=== PATIENT | male | born 1970 | race American Indian/Alaskan Native ===

== ENCOUNTER 2018-05-14 11:51 | Inpatient (IN) | payer OTHER ==
[2018-05-14 12:03] VITALS: BMI 32.8
[2018-05-14] MEDS ORDERED: Vancomycin 1gm in NS 250ml 1 GM/250 ML BAG IVPB STA (12:37)
[2018-05-14] MEDS ORDERED: Piperacillin/Tazobact 3.375 gm 100 ML IVPB STA (12:37)
--- NOTE | 2018-05-14 12:59 | ED PDOC ---
Arrival/HPI - General Chief Complaint: Finger,Hand,&Wrist Historian: Patient - History of Present Illness Narrative History of Present Illness (Text): 05/14/18 14:48 47yo morbidly obese male with pmhx of Asthma who present with complaint of right thumb swelling/pain x one week. Patient states a shell went into his nail on 05/01 and he was seen at in [place], where he was given antibiotic. States he took the unknown antibiotics for a week but the swelling became worse. Reports drainage from opening on the tuft. Denies fever,chills, nausea, vomiting, any other complaint. Past Medical History - Provider Review Nursing Documentation Reviewed: Yes - Infectious Disease Hx of Infectious Diseases: None - Psychiatric Hx Psychophysiologic Disorder: No Hx Substance Use: No - Anesthesia Hx Anesthesia: No Hx Anesthesia Reactions: No Hx Malignant Hyperthermia: No Family/Social History - Physician Review Nursing Documentation Reviewed: Yes Family/Social History: Unknown Family HX Smoking Status: Current Some Days Smoker Hx Alcohol Use: No Hx Substance Use: No Allergies/Home Meds Allergies/Adverse Reactions: Allergies Penicillins Allergy (Verified 05/14/18 12:56) RASH Review of Systems - Physician Review All systems were reviewed & negative as marked: Yes - Review of Systems Constitutional: Normal Eyes: Normal ENT: Normal Respiratory: Normal Cardiovascular: Normal Gastrointestinal: Normal Genitourinary Male: Normal Musculoskeletal: Normal Skin: Normal, Abscess (Right thumb) Neurological: Normal Endocrine: Normal Hemo/Lymphatic: Normal Psychiatric: Normal Physical Exam Vital Signs Reviewed: Yes Vital Signs Temp Pulse Resp Pulse Ox 05/14/18 12:03 98.9 F 88 18 99 Temperature: Afebrile Blood Pressure: Normal Pulse: Regular Respiratory Rate: Normal Appearance: Positive for: Well-Appearing, Non-Toxic, Comfortable Pain Distress: None Mental Status: Positive for: Alert and Oriented X 3 - Systems Exam Head: Present: Atraumatic, Normocephalic Pupils: Present: PERRL Extroacular Muscles: Present: EOMI Conjunctiva: Present: Normal Mouth: Present: Moist Mucous Membranes Neck: Present: Normal Range of Motion Respiratory/Chest: Present: Clear to Auscultation, Good Air Exchange. No: Respiratory Distress, Accessory Muscle Use Cardiovascular: Present: Regular Rate and Rhythm, Normal S1, S2. No: Murmurs Abdomen: No: Tenderness, Distention, Peritoneal Signs Back: Present: Normal Inspection Upper Extremity: Present: Normal Inspection. No: Cyanosis, Edema Lower Extremity: Present: Normal Inspection. No: Edema Neurological: Present: GCS=15, CN II-XII Intact, Speech Normal Skin: Present: Warm, Dry, Normal Color, Abscess (Right distal thumb and diffuse thumb swelling with erythema noted on the base of the thumb.). No: Rashes Psychiatric: Present: Alert, Oriented x 3, Normal Insight, Normal Concentration Medical Decision Making ED Course and Treatment: 05/14/18 14:53 47yo male who present to ED for stated history. He was afebrile and in no distress in ED. He have prominent swelling of his right thumb with erythema of his thumb base and abscess of his distal thumb. Labs Hand xray EKG EKG NSR @ 92bpm with LBBB. Lab was noted with BS of 389. Pt denied history of Diabetes. Likely a new onset diabetic. Pt denied chest pain but cardiac enzyme was ordered. Right hand xray - No acute finding Pt failed outpt oral abx and needed admission of IV abx. BS result was ABHISHEK Amaro and she was made aware hence pt was already admitted and sent upstairs. Case was ABHISHEK Hauser who accepted pt Case was also ABHISHEK Page, who states he will see pt in the hospital. - RAD Interpretation Radiology Orders: 05/14/18 12:38 HAND RIGHT THUMB [RAD] Stat - Medication Orders Current Medication Orders: Vancomycin HCl (Vancomycin 1gm) 1 gm in 250 mls @ 167 mls/hr IVPB STAT STA; Protocol Stop: 05/14/18 14:06 Piperacillin Sod/Tazobactam Sod (Zosyn 3.375 In Ns 100ml) 100 mls @ 200 mls/hr IVPB STAT STA; Protocol Stop: 05/14/18 13:06 Disposition/Present on Arrival - Present on Arrival Any Indicators Present on Arrival: No History of DVT/PE: No History of Uncontrolled Diabetes: No Urinary Catheter: No History of Decub. Ulcer: No History Surgical Site Infection Following: None - Disposition Have Diagnosis and Disposition been Completed?: Yes Diagnosis: Cellulitis and abscess of finger, unspecified, Diabetes mellitus, new onset Disposition: HOSPITALIZED Disposition Time: 12:30 Patient Plan: Admission Patient Problems: Current Active Problems Problem Status Onset Cellulitis and abscess of finger, unspecified Acute Diabetes mellitus, new onset Acute Condition: STABLE
[2018-05-14 13:09] LABS: BASO # 0.02 K/mm3 (0.0-2.0); BASO % 0.2 % (0.0-3.0); EOS # 0.1 (0.0-0.7); EOS % 0.5 % (1.5-5.0); GRAN # 8.13 (1.4-6.5); GRAN % 74.7 % (50.0-68.0); LYMPH # 1.6 (1.2-3.4); LYMPH % 14.8 % (22.0-35.0); MEAN CELL VOLUME 94.7 fl (80.0-105.0); MEAN CORPUSCULAR HEMOGLOBIN 32.9 pg (25.0-35.0); MEAN CORPUSCULAR HGB CONC 34.7 g/dl (31.0-37.0); MEAN PLATELET VOLUME 11.1 fl (7.0-11.0); MONO # 1.1 (0.1-0.6); MONO % 9.8 % (1.0-6.0); RBC 4.56 10^6/uL (3.5-6.1); RED CELL DISTRIBUTION WIDTH 12.7 % (11.5-14.5); WHITE BLOOD COUNT 10.9 10^3/uL (4.5-11.0)
[2018-05-14 13:15] LABS: INR 0.94; PARTIAL THROMBOPLASTIN TIME 29.2 Seconds (25.1-36.5); PROTHROMBIN TIME 10.8 SECONDS (9.4-12.5)
--- NOTE | 2018-05-14 13:29 | CP.PCM.HP ---
<Colt Mann - Last Filed: 05/14/18 15:27> History of Present Illness - History of Present Illness History of Present Illness: Abhijit Mann PGY2 - History and Physical for Hospitalist Service CC: Right thumb swelling/pain HPI: Mr. Flores is a 47 year old AA male with past medical history significant for asthma and pre-DM who presented to [facility] ED complaining of right thumb discomfort and swelling. 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 Patient indicates that he felt and could visualize part of the walnut fragment go under his right thumbnail. He was able to scrap out all of the walnut fragment. He stated that he washed and cleaned his hand with only minimal bleeding noticed. He indicates he went home and then the next day went to an urgent care in [place], [place] where he works to be evaluated. A three view right handed xray was preformed showing as what he reports as foreign body. Patient has xray on a CD for which he bro ught with him to the ED. The patient was also placed on Clindamycin 300mg TID for 10 days and instructed to follow up with an orthopedic surgeon. Patient reports taking up to 6 days of medication before presenting to [facility]. Patient stated that at the time of the urgent care visit he had swelling in his right thumb that was significant. He reported that over the past few days he has noticed some decrease in the swelling. Patient reports that he has limited range of motion with flexion at the distal interphalangeal joint, swelling involving the distal the mid portion of his thumb and dullness to feeling around the distal aspect of the thumb. He reports some drainage of clear fluid and blood periodically. He denies systemic illness, with denial of nausea, vomiting, fever, chills, abdominal pain, diarrhea, constipation. Patient has not been to work since the incident. 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 García Present on Admission - Present on Admission Any Indicators Present on Admission: No Review of Systems - Review of Systems All systems: reviewed and no additional remarkable complaints except (as mentioned in HPI) Past Patient History - Infectious Disease Hx of Infectious Diseases: None - Past Social History Smoking Status: Current Some Days Smoker - PSYCHIATRIC Hx Psychophysiologic Disorder: No Hx Substance Use: No - ANESTHESIA Hx Anesthesia: No Hx Anesthesia Reactions: No Hx Malignant Hyperthermia: No Meds Allergies/Adverse Reactions: Allergies Allergy/AdvReac Type Severity Reaction Status Date / Time Penicillins Allergy RASH Verified 05/14/18 12:56 shellfish Allergy ANAPHYLAXIS Uncoded 05/14/18 16:48 Physical Exam - Constitutional Appears: No Acute Distress - Head Exam Head Exam: ATRAUMATIC, NORMAL INSPECTION, NORMOCEPHALIC - Eye Exam Eye Exam: EOMI, PERRL - ENT Exam ENT Exam: Mucous Membranes Moist, Normal Oropharynx - Respiratory Exam Respiratory Exam: Clear to Auscultation Bilateral, NORMAL BREATHING PATTERN. absent: Rales, Rhonchi, Wheezes - Cardiovascular Exam Cardiovascular Exam: REGULAR RHYTHM, +S1, +S2 - GI/Abdominal Exam GI & Abdominal Exam: Normal Bowel Sounds, Soft. absent: Tenderness - Extremities Exam Extremities exam: Positive for: pedal pulses present. Negative for: calf tenderness, pedal edema Additional comments: Right thumb is noted to be double in size compared to left thumb Right thumbnail with small discolarion underneath nail possible dried blood vs. foreign body Tip of right thumb appears to have discolaration of white and paleness representing possible swelling/pressure No wheeping of seroussanguinous or mucous fluid - Expanded Upper Extremities Exam Right Neurosensory exam: median nerve intact Vascular exam: brachial pulse (intact), radial pulse (intact 2+), ulnar pulse (intact 2+) - Neurological Exam Neurological exam: Alert, CN II-XII Intact, Normal Gait, Oriented x3, Reflexes Normal - Psychiatric Exam Psychiatric exam: Normal Affect, Normal Mood - Skin Skin Exam: Dry, Intact Results - Vital Signs Recent Vital Signs: Last Vital Signs Temp 98.9 F 05/14/18 12:03 Pulse 88 05/14/18 12:03 Resp 18 05/14/18 12:03 BP Pulse Ox 99 05/14/18 12:03 - Labs Result Diagrams: 05/14/18 12:50 05/14/18 12:50 Labs: Laboratory Results - last 24 hr 05/14/18 05/14/18 12:50 12:50 WBC 10.9 RBC 4.56 Hgb 15.0 Hct 43.2 MCV 94.7 MCH 32.9 MCHC 34.7 RDW 12.7 Plt Count 206 MPV 11.1 H Gran % 74.7 H Lymph % (Auto) 14.8 L [place] % (Auto) 9.8 H Eos % (Auto) 0.5 L Baso % (Auto) 0.2 Gran # 8.13 H Lymph # (Auto) 1.6 [place] # (Auto) 1.1 H Eos # (Auto) 0.1 Baso # (Auto) 0.02 PT 10.8 INR 0.94 APTT 29.2 Assessment & Plan - Assessment and Plan (Free Text) Assessment: 47 year old AA male with past medical history significant for asthma and pre-DM who presented to [facility] ED complaining of right thumb discomfort and swelling. Plan: Right thumb swelling - Etiology: Abscess vs. foreign body - Previous evaluation done 05/02/18 at urgent care MD - Started on Clindamycin 300mg PO TID completed 6 days of therapy - 1 gram of Vancomycin in ED - Right hand xray pending official read LBBB on EKG - EKG showing LBBB with no previous EKG for comparison - Contacted primary care office for request of records including previous EKG and echocardiogram - Troponin - VSS, Risk factors include DM2 - Hx of Asthma - Patient reports using ProAir inhaler at home - Current social smoker, cessation counseling provided - duoneb prn shortness of breath DM2 - elevated glucose on admission 300+ - ISS low - ACHS - HgA1c ordered pending GI/DVT ppx - Pepcid - SCD Patient case and plan discussed with attending, Dr. Walls - Date & Time Date: 05/14/18 Time: 13:56 <Gardenia Walls - Last Filed: 05/15/18 11:32> Results - Vital Signs Recent Vital Signs: Last Vital Signs Temp 98.6 F 05/15/18 07:00 Pulse 94 H 05/15/18 07:00 Resp 20 05/15/18 07:00 BP 133/80 05/15/18 07:00 Pulse Ox 98 05/15/18 07:00 - Labs Result Diagrams: 05/15/18 07:30 05/15/18 07:30 Labs: Laboratory Results - last 24 hr 05/14/18 05/14/18 05/14/18 12:00 12:00 12:50 WBC 10.9 RBC 4.56 Hgb 15.0 Hct 43.2 MCV 94.7 MCH 32.9 MCHC 34.7 RDW 12.7 Plt Count 206 MPV 11.1 H Gran % 74.7 H Lymph % (Auto) 14.8 L [place] % (Auto) 9.8 H Eos % (Auto) 0.5 L Baso % (Auto) 0.2 Gran # 8.13 H Lymph # (Auto) 1.6 [place] # (Auto) 1.1 H Eos # (Auto) 0.1 Baso # (Auto) 0.02 PT INR APTT Sodium Potassium Chloride Carbon Dioxide Anion Gap BUN Creatinine Est GFR ( Amer) Est GFR (Non-Af Amer) POC Glucose (mg/dL) Random Glucose Hemoglobin A1c 15.0 H Calcium Phosphorus 3.8 Magnesium 1.8 Total Bilirubin AST ALT Alkaline Phosphatase Lactate Dehydrogenase Total Creatine Kinase Troponin I Total Protein Albumin Globulin Albumin/Globulin Ratio 05/14/18 05/14/18 05/14/18 12:50 12:50 16:18 WBC RBC Hgb Hct MCV MCH MCHC RDW Plt Count MPV Gran % Lymph % (Auto) [place] % (Auto) Eos % (Auto) Baso % (Auto) Gran # Lymph # (Auto) [place] # (Auto) Eos # (Auto) Baso # (Auto) PT 10.8 INR 0.94 APTT 29.2 Sodium 136 Potassium 4.4 Chloride 102 Carbon Dioxide 17 L Anion Gap 21 H BUN 12 Creatinine 0.6 L Est GFR ( Amer) > 60 Est GFR (Non-Af Amer) > 60 POC Glucose (mg/dL) Random Glucose 383 H* Hemoglobin A1c Calcium 9.7 Phosphorus Magnesium Total Bilirubin 0.5 AST 19 ALT 19 Alkaline Phosphatase 108 Lactate Dehydrogenase 329 L Total Creatine Kinase 46 Troponin I < 0.01 Total Protein 7.6 Albumin 4.3 Globulin 3.3 Albumin/Globulin Ratio 1.3 05/14/18 05/14/18 05/15/18 16:29 21:24 06:39 WBC RBC Hgb Hct MCV MCH MCHC RDW Plt Count MPV Gran % Lymph % (Auto) [place] % (Auto) Eos % (Auto) Baso % (Auto) Gran # Lymph # (Auto) [place] # (Auto) Eos # (Auto) Baso # (Auto) PT INR APTT Sodium Potassium Chloride Carbon Dioxide Anion Gap BUN Creatinine Est GFR ( Amer) Est GFR (Non-Af Amer) POC Glucose (mg/dL) 388 H 341 H 256 H Random Glucose Hemoglobin A1c Calcium Phosphorus Magnesium Total Bilirubin AST ALT Alkaline Phosphatase Lactate Dehydrogenase Total Creatine Kinase Troponin I Total Protein Albumin Globulin Albumin/Globulin Ratio 05/15/18 05/15/18 07:30 07:30 WBC 9.1 RBC 4.35 Hgb 14.2 Hct 41.1 L MCV 94.5 MCH 32.6 MCHC 34.5 RDW 12.4 Plt Count 197 MPV 11.6 H Gran % 64.3 Lymph % (Auto) 17.3 L [place] % (Auto) 17.3 H Eos % (Auto) 0.8 L Baso % (Auto) 0.3 Gran # 5.88 Lymph # (Auto) 1.6 [place] # (Auto) 1.6 H Eos # (Auto) 0.1 Baso # (Auto) 0.03 PT INR APTT Sodium 134 Potassium 4.0 Chloride 98 Carbon Dioxide 26 Anion Gap 15 BUN 9 Creatinine 0.6 L Est GFR ( Amer) > 60 Est GFR (Non-Af Amer) > 60 POC Glucose (mg/dL) Random Glucose 279 H Hemoglobin A1c Calcium 9.3 Phosphorus Magnesium Total Bilirubin 0.6 AST 16 L ALT 17 Alkaline Phosphatase 98 Lactate Dehydrogenase Total Creatine Kinase Troponin I Total Protein 7.2 Albumin 3.9 Globulin 3.3 Albumin/Globulin Ratio 1.2 Attending/Attestation - Attestation I have personally seen and examined this patient.: Yes I have fully participated in the care of the patient.: Yes I have reviewed all pertinent clinical information: Yes Notes (Text): 05/15/18 11:29 Medical record note made by the resident after discussion with my direction and input after the patient was personally seen and examined by me. I have reviewed the chart and agree that the record accurately reflects by personal performance of the history, physical exam, data review, and medical decision-making, in the course for the patient. I have also personally directed the plan of care. 47 year old male with past medical history significant for asthma ,DM and non compliance with medication is admitted with right thumb abscess, failed out patient antibiotics therapy Patient is also found to have elevated blood sugars Agreed with IV antibiotics. Surgery is consulted,Patient will need I/D We will follow up cultures. For DM, we will start on Levemir, we will check Hemoglobin 1AC and will monitor blood sugars. Management plan was discussed in detail with patient. Education was provided.
[2018-05-14 13:37] LABS: ALB/GLOB RATIO 1.3 (1.1-1.8); ALBUMIN 4.3 g/dL (3.0-4.8); ALT/SGPT 19 U/L (7-56); AST/SGOT 19 U/L (17-59); BLOOD UREA NITROGEN 12 mg/dL (7-21); CALCIUM 9.7 mg/dL (8.4-10.5); GFR NON-AFRICAN AMERICAN > 60
[2018-05-14] MEDS ORDERED: Albuterol-Ipratrop 3 mg / 0.5 (3 ml) UD IH PRN (13:53)
--- NOTE | 2018-05-14 14:03 | RAD ---
PROCEDURE: Right Hand Radiographs. HISTORY: thumb infectioin COMPARISON: None. FINDINGS: BONES: Normal. No fracture. JOINTS: Normal. No osteoarthritic changes. SOFT TISSUES: Normal. OTHER FINDINGS: None. IMPRESSION: Normal right hand radiographs.
[2018-05-14] MEDS ORDERED: Dextrose 50% SYRINGE Inj (50 ml) IV PRN (14:05)
--- NOTE | 2018-05-14 16:27 | CP.PCM.CON ---
History of Present Illness - History of Present Illness History of Present Illness: Plastic/Hand Surgery Dr. Page 47 y/o M w/ PMHx of ... presents to the ED c/o Right thumb pain/swelling. Pt reports injuring his thumb on 05/01 while at work. 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 Pt reports removing all of the visible shell from under his nail. Pt admits to minor bleeding at time of injury. Pt provided local wound care at time of injury. About 3 days after injury, pt went to Urgent Care for worsening pain/swelling of thumb. Xrays done at urgent care showed no retained foreign body. Pt given 10days Clindamycin PO of which pt reports taking 6days. Pt came to the ED today for worsening pain, swelling, and drainage from thumb. Pt admits to decreased ROM and sensation to thumb but denies numbnes s/tingling. Pt denies F/C, N/V. PMHx: Asthma, DM2 Meds: reviewed in chart ALL: PCN, shellfish PSHx: denies SHx: (+)tobacco; denies EtOH, drug use FHx: noncontributory Review of Systems - Review of Systems All systems: reviewed and no additional remarkable complaints except (see HPI) Past Patient History - Infectious Disease Hx of Infectious Diseases: None - Past Social History Smoking Status: Current Some Days Smoker - PSYCHIATRIC Hx Psychophysiologic Disorder: No Hx Substance Use: No - ANESTHESIA Hx Anesthesia: No Hx Anesthesia Reactions: No Hx Malignant Hyperthermia: No Meds Allergies/Adverse Reactions: Allergies Allergy/AdvReac Type Severity Reaction Status Date / Time Penicillins Allergy RASH Verified 05/14/18 12:56 - Medications Medications: Current Medications Acetaminophen (Tylenol 325mg Tab) 650 mg PO Q6H PRN PRN Reason: Pain, moderate (4-7) Last Admin: 05/14/18 15:01 Dose: 650 mg Albuterol/Ipratropium (Duoneb 3 Mg/0.5 Mg (3 Ml) Ud) 3 ml IH Q2H PRN PRN Reason: Shortness of Breath Dextrose (Dextrose 50% Inj) 0 ml IV STAT PRN; Protocol PRN Reason: Hypoglycemia Protocol Famotidine (Pepcid) 40 mg PO HS JUAN JOSE Dextrose (Dextrose 5% In Water 1000 Ml) 1,000 mls @ 0 mls/hr IV .Q0M PRN; Protocol PRN Reason: Hypoglycemia Protocol Vancomycin HCl (Vancomycin 1gm) 1 gm in 250 mls @ 167 mls/hr IVPB DAILY JUAN JOSE; Protocol Piperacillin Sod/Tazobactam Sod (Zosyn 3.375 In Ns 100ml) 100 mls @ 25 mls/hr IVPB Q8 JUAN JOSE; Protocol Stop: 05/15/18 09:59 Insulin Detemir (Levemir) 10 unit SC HS JUAN JOSE Insulin Human Lispro (Humalog Med) 0 units SC ACHS JUAN JOSE; Protocol Physical Exam - Constitutional Appears: Non-toxic, No Acute Distress - Head Exam Head Exam: NORMAL INSPECTION - Eye Exam Eye Exam: Normal appearance - ENT Exam ENT Exam: Mucous Membranes Moist - Respiratory Exam Respiratory Exam: NORMAL BREATHING PATTERN. absent: Accessory Muscle Use, Respiratory Distress - Cardiovascular Exam Cardiovascular Exam: absent: Bradycardia, Tachycardia - GI/Abdominal Exam GI & Abdominal Exam: Normal Bowel Sounds, Soft. absent: Distended - Extremities Exam Additional comments: R thumb w/ fluctuance to nail root as well as pulp seropurulent drainage expressed from medial thumb wound - Neurological Exam Neurological exam: Alert, Oriented x3 - Psychiatric Exam Psychiatric exam: Normal Affect, Normal Mood - Skin Skin Exam: Dry, Warm Results - Vital Signs Recent Vital Signs: Last Vital Signs Temp 97.4 F L 05/14/18 14:00 Pulse 85 05/14/18 14:00 Resp 20 05/14/18 14:00 BP 123/70 05/14/18 14:00 Pulse Ox 96 05/14/18 14:00 - Labs Result Diagrams: 05/14/18 12:50 05/14/18 12:50 Labs: Laboratory Results - last 24 hr 05/14/18 05/14/18 05/14/18 12:00 12:50 12:50 WBC 10.9 RBC 4.56 Hgb 15.0 Hct 43.2 MCV 94.7 MCH 32.9 MCHC 34.7 RDW 12.7 Plt Count 206 MPV 11.1 H Gran % 74.7 H Lymph % (Auto) 14.8 L [place] % (Auto) 9.8 H Eos % (Auto) 0.5 L Baso % (Auto) 0.2 Gran # 8.13 H Lymph # (Auto) 1.6 [place] # (Auto) 1.1 H Eos # (Auto) 0.1 Baso # (Auto) 0.02 PT INR APTT Sodium 136 Potassium 4.4 Chloride 102 Carbon Dioxide 17 L Anion Gap 21 H BUN 12 Creatinine 0.6 L Est GFR ( Amer) > 60 Est GFR (Non-Af Amer) > 60 Random Glucose 383 H* Calcium 9.7 Phosphorus 3.8 Magnesium 1.8 Total Bilirubin 0.5 AST 19 ALT 19 Alkaline Phosphatase 108 Total Protein 7.6 Albumin 4.3 Globulin 3.3 Albumin/Globulin Ratio 1.3 05/14/18 12:50 WBC RBC Hgb Hct MCV MCH MCHC RDW Plt Count MPV Gran % Lymph % (Auto) [place] % (Auto) Eos % (Auto) Baso % (Auto) Gran # Lymph # (Auto) [place] # (Auto) Eos # (Auto) Baso # (Auto) PT 10.8 INR 0.94 APTT 29.2 Sodium Potassium Chloride Carbon Dioxide Anion Gap BUN Creatinine Est GFR ( Amer) Est GFR (Non-Af Amer) Random Glucose Calcium Phosphorus Magnesium Total Bilirubin AST ALT Alkaline Phosphatase Total Protein Albumin Globulin Albumin/Globulin Ratio - Imaging and Cardiology Hand x-ray Status: Image reviewed by me Assessment & Plan - Assessment and Plan (Free Text) Assessment: 47 y/o M w/ Right thumb felon Plan: - plan for bedside I&D this evening - cont pain management - cont IV Abx - warm betadine soaks TID - strict glucose control - f/u wound Cx Pt discussed w/ Dr. Camilo Cormier DO PGY3
[2018-05-14] MEDS ORDERED: Insulin Lispro (humaLOG) LOW Coverage SC SCH (16:30)
[2018-05-14 16:42] LABS: TROPONIN I < 0.01 ng/mL
[2018-05-14] MEDS: Insulin Lispro (humaLOG) MEDIUM Coverage SC SCH ×2 (17:30→21:38)
[2018-05-14] MEDS ORDERED: Pneumococcal 23-Valent Vaccine IM ONE (17:34)
[2018-05-14] MEDS ORDERED: Influenza Vaccine 60 mcg/0.5 mL SYR (4YR UP) IM ONE (17:34)
--- NOTE | 2018-05-14 20:10 | CARD ---
APPROVED REPORT Date of service: 05/14/2018 EKG Measurement Heart [id number] <Conclusion> Normal sinus rhythm Possible Left atrial enlargement Left bundle branch block Abnormal ECG
[2018-05-14] MEDS: Povidone Iodine Topical 10% Sol TOP SCH (20:33)
--- NOTE | 2018-05-14 20:33 | PCM.SURG1 ---
Surgeon's Initial Post Op Note - Surgeon's Notes Surgeon: Dr. Page Research Administrator: Dr. Duque PGY4 Type of Anesthesia: Block Regional Pre-Operative Diagnosis: right thumb abscess Operative Findings: purulent fluid, abscess cavity to bone Post-Operative Diagnosis: same Operation Performed: exploration, debridement, and incision and drainage of right thumb abscess and felon Specimen/Specimens Removed: abscess culture Estimated Blood Loss: EBL {In ML}: 0 Blood Products Given: N/A Drains Used: No Drains Post-Op Condition: Good Date of Surgery/Procedure: 05/14/18 Time of Surgery/Procedure: 20:33
[2018-05-14] MEDS ORDERED: Insulin Detemir 100 units/ml Vial (Levemir) SC SCH (22:00)
[2018-05-14] MEDS ORDERED: Piperacillin/Tazobact 3.375 gm 100 ML IVPB SCH (22:00)
[2018-05-14] MEDS: Vancomycin 1.5 GM in Sodium Chloride 0.9% 500 ML IVPB SCH (23:45)
--- NOTE | 2018-05-15 07:49 | CP.PCM.PN ---
<Wale Patrick - Last Filed: 05/15/18 12:59> Subjective - Date & Time of Evaluation Date of Evaluation: 05/15/18 Time of Evaluation: 06:00 - Subjective Subjective: Patient seen and examined bedside in AM. No acute issues overnight. Patient states pain and ROM in thumb have improved. Patient denies fever, chills, nausea, vomiting, or any other complaints at this time. Objective - Vital Signs/Intake and Output Vital Signs (last 24 hours): Temp Pulse Resp BP Pulse Ox 97.4 F L 110 H 18 123/70 96 05/14/18 14:00 05/14/18 16:47 05/14/18 16:47 05/14/18 14:00 05/14/18 14:00 Intake and Output: 05/15/18 05/15/18 06:59 18:59 Intake Total 1420 Balance 1420 - Medications Medications: Current Medications Acetaminophen (Tylenol 325mg Tab) 650 mg PO Q6H PRN PRN Reason: Pain, moderate (4-7) Last Admin: 05/14/18 22:33 Dose: 650 mg Albuterol/Ipratropium (Duoneb 3 Mg/0.5 Mg (3 Ml) Ud) 3 ml IH Q2H PRN PRN Reason: Shortness of Breath Dextrose (Dextrose 50% Inj) 0 ml IV STAT PRN; Protocol PRN Reason: Hypoglycemia Protocol Famotidine (Pepcid) 40 mg PO HS JUAN JOSE Last Admin: 05/14/18 21:22 Dose: 40 mg Dextrose (Dextrose 5% In Water 1000 Ml) 1,000 mls @ 0 mls/hr IV .Q0M PRN; Protocol PRN Reason: Hypoglycemia Protocol Vancomycin HCl 1.5 gm/ Sodium (Chloride) 500 mls @ 167 mls/hr IVPB Q12H JUAN JOSE; Protocol Last Admin: 05/14/18 23:45 Dose: 167 mls/hr Piperacillin Sod/Tazobactam Sod (Zosyn 4.5 Gm In Ns 100ml) 4.5 gm in 100 mls @ 25 mls/hr IVPB Q6 JUAN JOSE; Protocol Stop: 05/15/18 21:59 Insulin Detemir (Levemir) 20 unit SC HS JUAN JOSE Insulin Human Lispro (Humalog Med) 0 units SC ACHS JUAN JOSE; Protocol Last Admin: 05/14/18 21:38 Dose: 2 units Povidone Iodine (Betadine 10% Topical Soln) 10 ml TOP TID JUAN JOSE Last Admin: 05/14/18 20:33 Dose: Not Given Tramadol HCl (Ultram) 50 mg PO Q6 PRN PRN Reason: Pain, moderate (4-7) Last Admin: 05/15/18 05:48 Dose: 50 mg - Labs Labs: 05/14/18 12:50 05/14/18 12:50 PT 10.8 SECONDS (9.4-12.5) 05/14/18 12:50 INR 0.94 05/14/18 12:50 APTT 29.2 Seconds (25.1-36.5) 05/14/18 12:50 - Constitutional Appears: Well, Non-toxic, No Acute Distress - Head Exam Head Exam: ATRAUMATIC, NORMAL INSPECTION, NORMOCEPHALIC - Eye Exam Eye Exam: EOMI, Normal appearance, PERRL - ENT Exam ENT Exam: Mucous Membranes Moist - Respiratory Exam Respiratory Exam: Clear to Ausculation Bilateral, NORMAL BREATHING PATTERN - Cardiovascular Exam Cardiovascular Exam: REGULAR RHYTHM, +S1, +S2 - GI/Abdominal Exam GI & Abdominal Exam: Soft, Normal Bowel Sounds. absent: Tenderness - Extremities Exam Extremities Exam: absent: Pedal Edema, Tenderness - Back Exam Additional comments: right thumb has dressing, patient has good range of motion - Neurological Exam Neurological Exam: Alert, Awake, Oriented x3 Assessment and Plan - Assessment and Plan (Free Text) Assessment: 47 year old AA male with past medical history significant for asthma and pre-DM who presented [place] [facility] complaining of right thumb discomfort and swelling. Plan: Right thumb swelling -s/p Incission and Drainage with Dr. Camilo hsieh, aztreonam, acyclovir -MRI of thumb pending to rule our osteomyelitis LBBB on EKG -EKG showing LBBB with no previous EKG for comparison -Contacted primary care office for request of records including previous EKG and echocardiogram -troponin negative Hx of Asthma - Patient reports using ProAir inhaler at home - Current social smoker, cessation counseling provided - Duoneb prn shortness of breath DM2 - elevated glucose on admission 300+ - ISS low - ACHS - HgA1c: 12.4 GI/DVT ppx - Pepcid - SCD <Irfan,Mohammad - Last Filed: 05/15/18 13:54> Objective - Vital Signs/Intake and Output Vital Signs (last 24 hours): Temp Pulse Resp BP Pulse Ox 98.6 F 94 H 20 133/80 98 05/15/18 07:00 05/15/18 07:00 05/15/18 07:00 05/15/18 07:00 05/15/18 07:00 Intake and Output: 05/15/18 05/15/18 06:59 18:59 Intake Total 1420 Balance 1420 - Medications Medications: Current Medications Acetaminophen (Tylenol 325mg Tab) 650 mg PO Q6H PRN PRN Reason: Pain, moderate (4-7) Last Admin: 05/14/18 22:33 Dose: 650 mg Albuterol/Ipratropium (Duoneb 3 Mg/0.5 Mg (3 Ml) Ud) 3 ml IH Q2H PRN PRN Reason: Shortness of Breath Dextrose (Dextrose 50% Inj) 0 ml IV STAT PRN; Protocol PRN Reason: Hypoglycemia Protocol Famotidine (Pepcid) 40 mg PO HS JUAN JOSE Last Admin: 05/14/18 21:22 Dose: 40 mg Dextrose (Dextrose 5% In Water 1000 Ml) 1,000 mls @ 0 mls/hr IV .Q0M PRN; Protocol PRN Reason: Hypoglycemia Protocol Vancomycin HCl 1.5 gm/ Sodium (Chloride) 500 mls @ 167 mls/hr IVPB Q12H JUAN JOSE; Protocol Last Admin: 05/15/18 10:22 Dose: 167 mls/hr Aztreonam (Azactam 1 Gm) 100 mls @ 200 mls/hr IVPB Q8 JUAN JOSE Last Admin: 05/15/18 10:21 Dose: 200 mls/hr Acyclovir 500 mg/ Sodium (Chloride) 100 mls @ 100 mls/hr IV Q8 JUAN JOSE; Protocol Stop: 05/24/18 14:01 Insulin Detemir (Levemir) 20 unit SC HS JUAN JOSE Insulin Human Lispro (Humalog Med) 0 units SC ACHS JUAN JOSE; Protocol Last Admin: 05/15/18 10:11 Dose: 5 units Povidone Iodine (Betadine 10% Topical Soln) 10 ml TOP TID JUAN JOSE Last Admin: 05/15/18 10:12 Dose: 1 applic Tramadol HCl (Ultram) 50 mg PO Q6 PRN PRN Reason: Pain, moderate (4-7) Last Admin: 05/15/18 05:48 Dose: 50 mg - Labs Labs: 05/15/18 07:30 05/15/18 07:30 PT 10.8 SECONDS (9.4-12.5) 05/14/18 12:50 INR 0.94 05/14/18 12:50 APTT 29.2 Seconds (25.1-36.5) 05/14/18 12:50 Attending/Attestation - Attestation I have personally seen and examined this patient.: Yes I have fully participated in the care of the patient.: Yes I have reviewed all pertinent clinical information, including history, physical exam and plan: Yes Notes (Text): 05/15/18 13:45 Medical record note made by the resident after discussion with my direction and input after the patient was personally seen and examined by me. I have reviewed the chart and agree that the record accurately reflects by personal performance of the history, physical exam, data review, and medical decision-making, in the course for the patient. I have also personally directed the plan of care. 47 year old male with past medical history significant for asthma ,DM and non compliance with medication was admitted with right thumb abscess, failed out patient antibiotics therapy. He is SP I/D of abcess yesterday. We will also get MRI of hand to rule out osteomylitis. Continue IV antibiotic as per ID We will follow up cultures. DM is poorly controlled due to non compliance with medication.Hb1AC is 15. We will increase Levemir to 20 units , we will monitor and adjust medications.. Management plan was discussed in detail with patient. Education was provided. 05/15/18 13:53
--- NOTE | 2018-05-15 08:19 | CP.PCM.PN ---
Subjective - Date & Time of Evaluation Date of Evaluation: 05/15/18 Time of Evaluation: 08:12 - Subjective Subjective: Surgery: Dr. Page Patient reports significant overall improvement of pain and ROM this am of the right thumb. Denies f/c. No numbness or tingling of the thumb. Objective - Vital Signs/Intake and Output Vital Signs (last 24 hours): Temp Pulse Resp BP Pulse Ox 98.6 F 94 H 20 133/80 98 05/15/18 07:00 05/15/18 07:00 05/15/18 07:00 05/15/18 07:00 05/15/18 07:00 Intake and Output: 05/15/18 05/15/18 06:59 18:59 Intake Total 1420 Balance 1420 - Medications Medications: Current Medications Acetaminophen (Tylenol 325mg Tab) 650 mg PO Q6H PRN PRN Reason: Pain, moderate (4-7) Last Admin: 05/14/18 22:33 Dose: 650 mg Albuterol/Ipratropium (Duoneb 3 Mg/0.5 Mg (3 Ml) Ud) 3 ml IH Q2H PRN PRN Reason: Shortness of Breath Dextrose (Dextrose 50% Inj) 0 ml IV STAT PRN; Protocol PRN Reason: Hypoglycemia Protocol Famotidine (Pepcid) 40 mg PO HS JUAN JOSE Last Admin: 05/14/18 21:22 Dose: 40 mg Dextrose (Dextrose 5% In Water 1000 Ml) 1,000 mls @ 0 mls/hr IV .Q0M PRN; Protocol PRN Reason: Hypoglycemia Protocol Vancomycin HCl 1.5 gm/ Sodium (Chloride) 500 mls @ 167 mls/hr IVPB Q12H JUAN JOSE; Protocol Last Admin: 05/14/18 23:45 Dose: 167 mls/hr Aztreonam (Azactam 1 Gm) 100 mls @ 200 mls/hr IVPB Q8 JUAN JOSE Insulin Detemir (Levemir) 20 unit SC HS JUAN JOSE Insulin Human Lispro (Humalog Med) 0 units SC ACHS JUAN JOSE; Protocol Last Admin: 05/14/18 21:38 Dose: 2 units Povidone Iodine (Betadine 10% Topical Soln) 10 ml TOP TID JUAN JOSE Last Admin: 05/14/18 20:33 Dose: Not Given Tramadol HCl (Ultram) 50 mg PO Q6 PRN PRN Reason: Pain, moderate (4-7) Last Admin: 05/15/18 05:48 Dose: 50 mg - Labs Labs: 05/14/18 12:50 05/14/18 12:50 PT 10.8 SECONDS (9.4-12.5) 05/14/18 12:50 INR 0.94 05/14/18 12:50 APTT 29.2 Seconds (25.1-36.5) 05/14/18 12:50 - Constitutional Appears: Non-toxic, No Acute Distress - Extremities Exam Additional comments: right thumb with kerlex dressing wrap clean dry and intact Right hand neurovascularly intact Assessment and Plan - Assessment and Plan (Free Text) Assessment: 47 y/o male s/p exploration, debridement and I&D of right thumb abscess POD1 Plan: -recommending MRI of the Right hand/thumb to r/o osteo -cont IV abx per ID -leave dressing in place, with remove packing on Thursday. After packing removed, ok to wash wound with soap and water then cover with bacitracin at least 2x/day -d/w Dr. Alfredo Sorensen PGY4
[2018-05-15 08:33] LABS: ALB/GLOB RATIO 1.2 (1.1-1.8); ALBUMIN 3.9 g/dL (3.0-4.8); ALT/SGPT 17 U/L (7-56); AST/SGOT 16 U/L (17-59); BLOOD UREA NITROGEN 9 mg/dL (7-21); CALCIUM 9.3 mg/dL (8.4-10.5); GFR NON-AFRICAN AMERICAN > 60
[2018-05-15 08:51] LABS: BASO # 0.03 K/mm3 (0.0-2.0); BASO % 0.3 % (0.0-3.0); EOS # 0.1 (0.0-0.7); EOS % 0.8 % (1.5-5.0); GRAN # 5.88 (1.4-6.5); GRAN % 64.3 % (50.0-68.0); HEMOGLOBIN 14.2 g/dL (14.0-18.0); LYMPH # 1.6 (1.2-3.4); LYMPH % 17.3 % (22.0-35.0); MEAN CELL VOLUME 94.5 fl (80.0-105.0); MEAN CORPUSCULAR HEMOGLOBIN 32.6 pg (25.0-35.0); MEAN CORPUSCULAR HGB CONC 34.5 g/dl (31.0-37.0); MEAN PLATELET VOLUME 11.6 fl (7.0-11.0); MONO # 1.6 (0.1-0.6); MONO % 17.3 % (1.0-6.0); RBC 4.35 10^6/uL (3.5-6.1); RED CELL DISTRIBUTION WIDTH 12.4 % (11.5-14.5); WHITE BLOOD COUNT 9.1 10^3/uL (4.5-11.0)
[2018-05-15] MEDS ORDERED: Vancomycin 1gm in NS 250ml 1 GM/250 ML BAG IVPB SCH (10:00)
[2018-05-15] MEDS: Insulin Lispro (humaLOG) MEDIUM Coverage SC SCH ×4 (10:11→22:17)
[2018-05-15] MEDS: Povidone Iodine Topical 10% Sol TOP SCH ×4 (10:12→17:45)
[2018-05-15] MEDS: Aztreonam 1 Gm in NS 100mL 100 ML IVPB SCH ×3 (10:21→21:41)
[2018-05-15] MEDS: Vancomycin 1.5 GM in Sodium Chloride 0.9% 500 ML IVPB SCH ×2 (10:22→22:36)
[2018-05-15] MEDS ORDERED: Piperacill/Tazo 4.5gm in NS 4.5 GM/100 ML BAG IVPB SCH (12:00)
--- NOTE | 2018-05-15 13:07 | RAD ---
Date of service: 05/15/2018 PROCEDURE: Right Thumb radiographs. HISTORY: rule out osteo COMPARISON: None. TECHNIQUE: AP radiograph of the right hand, as well as spot oblique and lateral images of thumb were obtained. FINDINGS: RIGHT THUMB: There is a comminuted fracture of the distal phalanx of the right thumb with significant surrounding soft tissue swelling and what appears represent subcutaneous air along the palmar surface consistent with laceration. There may also be disruption of the nail bed as well. JOINTS: Normal. SOFT TISSUES: As above OTHER FINDINGS: None. IMPRESSION: Comminuted fracture of the distal phalanx of the right thumb with significant surrounding soft tissue swelling and what appears represent subcutaneous air along the palmar surface consistent with laceration. There may also be disruption of the nail bed as well.
[2018-05-15] MEDS: Acyclovir 500 MG in Sodium Chloride 0.9% 100 ML IV SCH ×2 (13:47→21:32)
--- NOTE | 2018-05-15 14:10 | CON ---
DATE OF CONSULTATION: 05/15/2018 The patient is seen earlier today in Room 574, Bed 2. CHIEF COMPLAINT: Right thumb infection x1 week duration. 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 After some time, he received antibiotics, which did not improve his thumb and he got progressively worse, was admitted now with a diagnosis of cellulitis and abscess of the thumb, was taken to the OR, had incision and drainage yesterday and exploration of the thumb. Infectious Disease consultation is requested. The patient states that his thumb was perfectly fine before the trauma. No nausea, no vomiting, no fevers, no chills, no chest pain. PAST MEDICAL HISTORY: Significant for prediabetes, high cholesterol, hypertension, and asthma. PAST SURGICAL HISTORY: Noncontributory. 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 He is . He has 3 sons. No recent travel. He does not bite his nails, he did not have a chronic infection of his thumb, and it all occurred right after the trauma. MEDICATIONS AT HOME: Include the patient to be on Lipitor, glipizide, carvedilol, and Singulair. ALLERGIES: THE PATIENT STATES HE IS ALLERGIC TO PENICILLIN. HE STATES THAT HE HAS A TYPE 1 ALLERGY. HE DEVELOPED ANAPHYLAXIS TO SHRIMP AND HE DOES NOT KNOW WHAT HAPPENS WHEN HE GETS PENICILLIN, HE ASSUMES IT IS THE SAME THE SHRIMP. HIS MOTHER TOLD HIM THAT HE WAS ALLERGIC TO PENICILLIN. PHYSICAL EXAMINATION: GENERAL: The patient is in bed, answering questions appropriately, nontoxic. VITAL SIGNS: Temperature of 98, blood pressure is 120/70, respiratory rate of 20, heart rate of 94. HEENT: Unremarkable. NECK: Supple. LUNGS: Decreased breath sounds. HEART: Normal S1, S2. ABDOMEN: Soft. EXTREMITIES: On examination of his thumb, there is a prior dressing on it and I am unable to evaluate the patient's thumb on exam since this is a post primary dressing. LABORATORY DATA: White count of 10,000, hemoglobin of 15, platelets of 206. Coagulations noted. Chemistries reveal a glucose of 383. Hemoglobin A1c is 15. Creatinine is 0.6. X-rays are noted. Operative note is reviewed. ASSESSMENT AND PLAN: This is a 47-year-old male with hypertension, diabetes, now with cellulitis and abscess of the right thumb, status post incision and drainage and exploration in a patient who is diabetic. Based on the history, there is no evidence of herpetic latoya complicated with bacterial infection as the patient does not bite his nails, he did not have lesions there and the finger was fine until the trauma. At this time, currently on vancomycin and Azactam. We will order an HIV because of his age and continue the vancomycin and Azactam, but we will empirically add acyclovir, although I doubt herpetic latoya with bacterial infection, pending a full surgical examination when Surgery takes the dressing off, and we will make further recommendations pending OR cultures and initial evaluation results. Gustavo Burgess MD
[2018-05-15] MEDS: Insulin Detemir 100 units/ml Vial (Levemir) SC SCH (22:23)
[2018-05-16] MEDS: Acyclovir 500 MG in Sodium Chloride 0.9% 100 ML IV SCH ×3 (06:07→21:40)
[2018-05-16] MEDS: Aztreonam 1 Gm in NS 100mL 100 ML IVPB SCH ×3 (06:34→22:06)
[2018-05-16 08:01] LABS: BASO # 0.02 K/mm3 (0.0-2.0); BASO % 0.3 % (0.0-3.0); EOS # 0.1 (0.0-0.7); EOS % 1.8 % (1.5-5.0); GRAN # 2.78 (1.4-6.5); GRAN % 46.4 % (50.0-68.0); HEMOGLOBIN 13.7 g/dL (14.0-18.0); LYMPH # 2.3 (1.2-3.4); LYMPH % 38.7 % (22.0-35.0); MEAN CELL VOLUME 93.2 fl (80.0-105.0); MEAN CORPUSCULAR HEMOGLOBIN 31.9 pg (25.0-35.0); MEAN CORPUSCULAR HGB CONC 34.3 g/dl (31.0-37.0); MEAN PLATELET VOLUME 10.9 fl (7.0-11.0); MONO # 0.8 (0.1-0.6); MONO % 12.8 % (1.0-6.0); RBC 4.29 10^6/uL (3.5-6.1); RED CELL DISTRIBUTION WIDTH 12.5 % (11.5-14.5)
[2018-05-16 08:03] LABS: ALB/GLOB RATIO 1.1 (1.1-1.8); ALBUMIN 3.3 g/dL (3.0-4.8); ALT/SGPT 20 U/L (7-56); AST/SGOT 15 U/L (17-59); BLOOD UREA NITROGEN 15 mg/dL (7-21); CALCIUM 9.1 mg/dL (8.4-10.5); GFR NON-AFRICAN AMERICAN > 60
[2018-05-16] MEDS: Insulin Lispro (humaLOG) MEDIUM Coverage SC SCH ×4 (08:37→22:01)
--- NOTE | 2018-05-16 08:53 | CP.PCM.PN ---
Subjective - Date & Time of Evaluation Date of Evaluation: 05/16/18 Time of Evaluation: 06:50 - Subjective Subjective: Plastic surgery progress note for Dr. Page Pt seen and examined at bedside today. States pain is improved. Packing removed at bedside, tolerated well. Objective - Vital Signs/Intake and Output Vital Signs (last 24 hours): Temp Pulse Resp BP Pulse Ox 97.8 F 72 20 124/71 97 05/16/18 07:00 05/16/18 07:00 05/16/18 07:00 05/16/18 07:00 05/16/18 07:00 Intake and Output: 05/16/18 05/16/18 06:59 18:59 Intake Total 350 Balance 350 - Medications Medications: Current Medications Acetaminophen (Tylenol 325mg Tab) 650 mg PO Q6H PRN PRN Reason: Pain, moderate (4-7) Last Admin: 05/14/18 22:33 Dose: 650 mg Albuterol/Ipratropium (Duoneb 3 Mg/0.5 Mg (3 Ml) Ud) 3 ml IH Q2H PRN PRN Reason: Shortness of Breath Bacitracin (Bacitracin) 0 ea TOP BID JUAN JOSE Dextrose (Dextrose 50% Inj) 0 ml IV STAT PRN; Protocol PRN Reason: Hypoglycemia Protocol Famotidine (Pepcid) 40 mg PO HS JUAN JOSE Last Admin: 05/15/18 22:23 Dose: 40 mg Dextrose (Dextrose 5% In Water 1000 Ml) 1,000 mls @ 0 mls/hr IV .Q0M PRN; Protocol PRN Reason: Hypoglycemia Protocol Vancomycin HCl 1.5 gm/ Sodium (Chloride) 500 mls @ 167 mls/hr IVPB Q12H JUAN JOSE; Protocol Last Admin: 05/15/18 22:36 Dose: 167 mls/hr Aztreonam (Azactam 1 Gm) 100 mls @ 200 mls/hr IVPB Q8 JUAN JOSE Last Admin: 05/16/18 06:34 Dose: 200 mls/hr Acyclovir 500 mg/ Sodium (Chloride) 100 mls @ 100 mls/hr IV Q8 JUAN JOSE; Protocol Stop: 05/24/18 14:01 Last Admin: 05/16/18 06:07 Dose: 100 mls/hr Insulin Detemir (Levemir) 20 unit SC HS JUAN JOSE Last Admin: 05/15/18 22:23 Dose: 20 unit Insulin Human Lispro (Humalog Med) 0 units SC ACHS JUAN JOSE; Protocol Last Admin: 05/16/18 08:37 Dose: 3 units Povidone Iodine (Betadine 10% Topical Soln) 10 ml TOP TID JUAN JOSE Last Admin: 05/15/18 17:45 Dose: Not Given Tramadol HCl (Ultram) 50 mg PO Q6 PRN PRN Reason: Pain, moderate (4-7) Last Admin: 05/15/18 21:40 Dose: 50 mg - Labs Labs: 05/16/18 07:00 05/16/18 07:00 PT 10.8 SECONDS (9.4-12.5) 05/14/18 12:50 INR 0.94 05/14/18 12:50 APTT 29.2 Seconds (25.1-36.5) 05/14/18 12:50 - Constitutional Appears: Well, Non-toxic, No Acute Distress - Head Exam Head Exam: ATRAUMATIC, NORMOCEPHALIC - Eye Exam Eye Exam: Normal appearance. absent: Conjunctival injection, Scleral icterus - ENT Exam ENT Exam: Mucous Membranes Moist, Normal Oropharynx - Respiratory Exam Respiratory Exam: NORMAL BREATHING PATTERN. absent: Accessory Muscle Use, Respiratory Distress - Cardiovascular Exam Cardiovascular Exam: RRR - GI/Abdominal Exam GI & Abdominal Exam: Soft. absent: Distended, Tenderness - Extremities Exam Additional comments: right thumb with dressing intact, moderate amount of old sero-purulent saturation, mild erythema of the thumb, no areas of fluctance, minimal swelling, small amount of serosanguinous fluid expressed from incision on the side of the nail bed, nail bed with no bleeding - Neurological Exam Neurological Exam: Alert, Awake, Oriented x3 - Psychiatric Exam Psychiatric exam: Normal Affect, Normal Mood - Skin Skin Exam: Dry, Normal Color, Warm Assessment and Plan - Assessment and Plan (Free Text) Assessment: 47M with felon of the right thumb POD#2 s/p exploration, debridement and incis ion and drainage of right thumb Plan: BID dressing changes with warm soap water rinses and bacitracin F/U wound cultures F/U MRI Continue antibiotics PRN pain medication Discussed with Dr. Page, who agrees with above Kallie Ruggiero, PGY2
[2018-05-16] MEDS: Povidone Iodine Topical 10% Sol TOP SCH ×2 (09:11→18:00)
[2018-05-16] MEDS: Bacitracin 500 Units/gm Oint Foilpak UD TOP SCH ×2 (09:12→19:09)
[2018-05-16] MEDS: Vancomycin 1.5 GM in Sodium Chloride 0.9% 500 ML IVPB SCH ×2 (11:52→22:03)
--- NOTE | 2018-05-16 12:14 | CP.PCM.PN ---
<Colt Mann - Last Filed: 05/20/18 10:06> Subjective - Date & Time of Evaluation Date of Evaluation: 05/16/18 Time of Evaluation: 12:12 - Subjective Subjective: Abhijit Johnathan PGY2 - IM Progress Note for Hospitalist Service Patient seen and examined this AM. No acute events overnight. Patient went for MRI this AM. Wound culture final reading pending. Patient indicates he feels better than from presentation. Patient denies nausea, vomiting, fever, chills, shortness of breath, abdominal pain, chest pain. Objective - Vital Signs/Intake and Output Vital Signs (last 24 hours): Temp Pulse Resp BP Pulse Ox 97.8 F 72 20 124/71 97 05/16/18 07:00 05/16/18 07:00 05/16/18 07:00 05/16/18 07:00 05/16/18 07:00 Intake and Output: 05/16/18 05/16/18 06:59 18:59 Intake Total 350 Balance 350 - Medications Medications: Current Medications Acetaminophen (Tylenol 325mg Tab) 650 mg PO Q6H PRN PRN Reason: Pain, moderate (4-7) Last Admin: 05/16/18 09:10 Dose: 650 mg Albuterol/Ipratropium (Duoneb 3 Mg/0.5 Mg (3 Ml) Ud) 3 ml IH Q2H PRN PRN Reason: Shortness of Breath Bacitracin (Bacitracin) 0 ea TOP BID JUAN JOSE Last Admin: 05/16/18 09:12 Dose: 1 ea Dextrose (Dextrose 50% Inj) 0 ml IV STAT PRN; Protocol PRN Reason: Hypoglycemia Protocol Famotidine (Pepcid) 40 mg PO HS JUAN JOSE Last Admin: 05/15/18 22:23 Dose: 40 mg Dextrose (Dextrose 5% In Water 1000 Ml) 1,000 mls @ 0 mls/hr IV .Q0M PRN; Protocol PRN Reason: Hypoglycemia Protocol Vancomycin HCl 1.5 gm/ Sodium (Chloride) 500 mls @ 167 mls/hr IVPB Q12H JUAN JOSE; Protocol Last Admin: 05/16/18 11:52 Dose: 167 mls/hr Aztreonam (Azactam 1 Gm) 100 mls @ 200 mls/hr IVPB Q8 JUAN JOSE Last Admin: 05/16/18 06:34 Dose: 200 mls/hr Acyclovir 500 mg/ Sodium (Chloride) 100 mls @ 100 mls/hr IV Q8 JUAN JOSE; Protocol Stop: 05/24/18 14:01 Last Admin: 05/16/18 06:07 Dose: 100 mls/hr Insulin Detemir (Levemir) 20 unit SC HS JUAN JOSE Last Admin: 05/15/18 22:23 Dose: 20 unit Insulin Human Lispro (Humalog Med) 0 units SC ACHS JUAN JOSE; Protocol Last Admin: 05/16/18 08:37 Dose: 3 units Povidone Iodine (Betadine 10% Topical Soln) 10 ml TOP TID JUAN JOSE Last Admin: 05/16/18 09:11 Dose: 1 applic Tramadol HCl (Ultram) 50 mg PO Q6 PRN PRN Reason: Pain, moderate (4-7) Last Admin: 05/15/18 21:40 Dose: 50 mg - Labs Labs: 05/16/18 07:00 05/16/18 07:00 PT 10.8 SECONDS (9.4-12.5) 05/14/18 12:50 INR 0.94 05/14/18 12:50 APTT 29.2 Seconds (25.1-36.5) 05/14/18 12:50 - Constitutional Appears: No Acute Distress - Head Exam Head Exam: ATRAUMATIC, NORMAL INSPECTION, NORMOCEPHALIC - Eye Exam Eye Exam: EOMI, PERRL - ENT Exam ENT Exam: Mucous Membranes Moist - Neck Exam Neck Exam: Full ROM - Respiratory Exam Respiratory Exam: Clear to Ausculation Bilateral, NORMAL BREATHING PATTERN - Cardiovascular Exam Cardiovascular Exam: REGULAR RHYTHM, +S1, +S2 - GI/Abdominal Exam GI & Abdominal Exam: Soft, Normal Bowel Sounds - Extremities Exam Additional comments: rigth thumb covered in surgical dressing, saturation of serosanguinous fluid apparent - Neurological Exam Neurological Exam: Alert, Awake, Normal Gait, Oriented x3 Neuro motor strength exam: Left Upper Extremity: 5, Right Upper Extremity: 5, Left Lower Extremity: 5, Right Lower Extremity: 5 - Psychiatric Exam Psychiatric exam: Normal Affect, Normal Mood - Skin Skin Exam: Dry, Intact Assessment and Plan - Assessment and Plan (Free Text) Assessment: 47 year old AA male with past medical history of asthma and uncontrolled DM2(HgA1c 15) with right thumb abscess r/o OM secondary to penetrating trauma secondary to walnut shell while making food at his home. As previously mentioned patient injury occurred at work. This is incorrect as with further questioning the patient injury occurred at his home. Plan: Right thumb abscess -s/p Incission and Drainage with Dr. Page -vanc, aztreonam, acyclovir -MRI of thumb pending to rule our osteomyelitis -Dr. Page following LBBB on EKG -EKG showing LBBB with no previous EKG for comparison -Previous EKG reviewed -troponins negative Hx of Asthma - Patient reports using ProAir inhaler at home - Current social smoker, cessation counseling provided - Duoneb prn shortness of breath DM2 - elevated glucose on admission 300+ - ISS low - ACHS - HgA1c: 15 - Levemir - CCD GI/DVT ppx - Pepcid - SCD Patient case and plan discussed with attending, Dr. Walls <Gardenia Walls - Last Filed: 05/24/18 17:08> Objective - Vital Signs/Intake and Output Vital Signs (last 24 hours): Temp Pulse Resp BP Pulse Ox 98.5 F 87 20 126/85 99 05/19/18 14:00 05/19/18 14:00 05/19/18 14:00 05/19/18 14:00 05/19/18 14:00 - Labs Labs: 05/19/18 07:20 05/19/18 07:20 PT 10.8 SECONDS (9.4-12.5) 05/14/18 12:50 INR 0.94 05/14/18 12:50 APTT 29.2 Seconds (25.1-36.5) 05/14/18 12:50 Attending/Attestation - Attestation I have personally seen and examined this patient.: Yes I have fully participated in the care of the patient.: Yes I have reviewed all pertinent clinical information, including history, physical exam and plan: Yes Notes (Text): 05/24/18 17:06 Medical record note made by the resident after discussion with my direction and input after the patient was personally seen and examined by me. I have reviewed the chart and agree that the record accurately reflects by personal performance of the history, physical exam, data review, and medical decision-making, in the course for the patient. I have also personally directed the plan of care. 47 year old male with past medical history significant for asthma ,DM and noncompliance with medication was admitted with right thumb abscess, failed outpatient antibiotics therapy. He is SP I/D of abscess day # 2 , we will follow up MRI of hand to rule out osteomylitis. Management plan was discussed in detail with patient. Education was provided.
--- NOTE | 2018-05-16 20:07 | PN ---
DATE: 05/16/2018 SUBJECTIVE: Patient is in bed, no acute distress. PHYSICAL EXAMINATION VITAL SIGNS: Temperature is 98, blood pressure is 120/70, respiratory rate 16. HEENT: Unremarkable. NECK: Supple. LUNGS: Have decreased breath sounds. HEART: Normal S1 and S2. ABDOMEN: Soft. LABORATORY EXAMINATION: Reveals the patient to have white count to be 6, hemoglobin of 13. Coagulation is noted. Chemistries are reviewed. Microbiology reveals the thumb cultures are pending. Blood cultures have no growth. MRI is done and it is pending. 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 His finger was perfectly fine up to that point. By history, no evidence of herpetic latoya, and on examination today, the finger has a significant edema and erythema in the thumb within wound. Currently, on vancomycin, Azactam, acyclovir. Awaiting for culture results and MRI results. We will determine duration and therapy. We will follow closely with you. Case discussed with medical and with the house staff. Gustavo Burgess MD
[2018-05-16] MEDS: Insulin Detemir 100 units/ml Vial (Levemir) SC SCH (22:01)
[2018-05-17] MEDS: Acyclovir 500 MG in Sodium Chloride 0.9% 100 ML IV SCH ×3 (05:42→22:38)
[2018-05-17] MEDS: Aztreonam 1 Gm in NS 100mL 100 ML IVPB SCH ×3 (05:42→22:38)
[2018-05-17 07:54] LABS: BASO # 0.01 K/mm3 (0.0-2.0); BASO % 0.2 % (0.0-3.0); EOS # 0.1 (0.0-0.7); EOS % 2.9 % (1.5-5.0); GRAN # 2.17 (1.4-6.5); GRAN % 44.3 % (50.0-68.0); HEMOGLOBIN 13.5 g/dL (14.0-18.0); LYMPH % 39.9 % (22.0-35.0); MEAN CELL VOLUME 92.6 fl (80.0-105.0); MEAN CORPUSCULAR HEMOGLOBIN 32.1 pg (25.0-35.0); MEAN CORPUSCULAR HGB CONC 34.6 g/dl (31.0-37.0); MEAN PLATELET VOLUME 10.7 fl (7.0-11.0); MONO # 0.6 (0.1-0.6); MONO % 12.7 % (1.0-6.0); RBC 4.21 10^6/uL (3.5-6.1); RED CELL DISTRIBUTION WIDTH 12.5 % (11.5-14.5); WHITE BLOOD COUNT 4.9 10^3/uL (4.5-11.0)
[2018-05-17 08:06] LABS: BLOOD UREA NITROGEN 12 mg/dL (7-21); GFR NON-AFRICAN AMERICAN > 60
[2018-05-17] MEDS: Insulin Lispro (humaLOG) MEDIUM Coverage SC SCH (08:45)
[2018-05-17] MEDS: Bacitracin 500 Units/gm Oint Foilpak UD TOP SCH ×2 (09:43→16:59)
[2018-05-17] MEDS: Povidone Iodine Topical 10% Sol TOP SCH (09:44)
[2018-05-17] MEDS: Vancomycin 1.5 GM in Sodium Chloride 0.9% 500 ML IVPB SCH ×2 (10:28→22:38)
--- NOTE | 2018-05-17 12:44 | MRI ---
Date of service: 05/16/2018 PROCEDURE: MRI of the right thumb without contrast HISTORY: rule out osteomyelitis of right thumb COMPARISON: TECHNIQUE: MRI of the right thumb was performed in multiple planes using multiple pulse sequences. FINDINGS: There is extensive marrow edema in the 1st distal phalanx consistent with osteomyelitis. There is also soft tissue swelling around the tip of the thumb. A postoperative defect is seen in the soft tissue. There is no evidence of a residual foreign body. The report concurs with the preliminary [facility] report IMPRESSION: Marrow edema in the 1st distal phalanx consistent with osteomyelitis
[2018-05-17] MEDS: Insulin Reg-HIGH-Coverage SC SCH ×3 (12:50→22:49)
--- NOTE | 2018-05-17 16:23 | CP.PCM.PN ---
Subjective - Date & Time of Evaluation Date of Evaluation: 05/17/18 Time of Evaluation: 07:03 - Subjective Subjective: Plastic Surgery Progress Note- Dr. Page Patient seen and examined at bedside. Patient hand swelling improved significantly from yesterday. ROM improved. dressing C/D/I, changed this AM. No new complaints. Denies fevers, chills, chest pain, shortness of breath. Objective - Vital Signs/Intake and Output Vital Signs (last 24 hours): Temp Pulse Resp BP Pulse Ox 98.5 F 82 20 106/65 99 05/17/18 06:00 05/17/18 06:00 05/17/18 06:00 05/17/18 06:00 05/17/18 06:00 Intake and Output: 05/17/18 05/17/18 06:59 18:59 Intake Total 620 Balance 620 - Medications Medications: Current Medications Albuterol/Ipratropium (Duoneb 3 Mg/0.5 Mg (3 Ml) Ud) 3 ml IH Q2H PRN PRN Reason: Shortness of Breath Bacitracin (Bacitracin) 0 ea TOP BID JUAN JOSE Last Admin: 05/17/18 09:43 Dose: 1 ea Dextrose (Dextrose 50% Inj) 0 ml IV STAT PRN; Protocol PRN Reason: Hypoglycemia Protocol Famotidine (Pepcid) 40 mg PO HS JUAN JOSE Last Admin: 05/16/18 22:03 Dose: 40 mg Dextrose (Dextrose 5% In Water 1000 Ml) 1,000 mls @ 0 mls/hr IV .Q0M PRN; Protocol PRN Reason: Hypoglycemia Protocol Vancomycin HCl 1.5 gm/ Sodium (Chloride) 500 mls @ 167 mls/hr IVPB Q12H JUAN JOSE; Protocol Last Admin: 05/17/18 10:28 Dose: 167 mls/hr Aztreonam (Azactam 1 Gm) 100 mls @ 200 mls/hr IVPB Q8 JUAN JOSE Last Admin: 05/17/18 14:26 Dose: 200 mls/hr Acyclovir 500 mg/ Sodium (Chloride) 100 mls @ 100 mls/hr IV Q8 JUAN JOSE; Protocol Stop: 05/24/18 14:01 Last Admin: 05/17/18 14:27 Dose: 100 mls/hr Insulin Detemir (Levemir) 20 unit SC HS COUNTS INCLUDE 234 BEDS AT THE [facility] Last Admin: 05/16/18 22:01 Dose: 20 unit Insulin Human Regular (Humulin R High) 0 units SC ACHS COUNTS INCLUDE 234 BEDS AT THE [facility]; Protocol Last Admin: 05/17/18 12:50 Dose: 7 units Povidone Iodine (Betadine 10% Topical Soln) 10 ml TOP TID JUAN JOSE Last Admin: 05/17/18 09:44 Dose: 1 applic Tramadol HCl (Ultram) 50 mg PO Q6 PRN PRN Reason: Pain, moderate (4-7) Last Admin: 05/17/18 06:53 Dose: 50 mg - Labs Labs: 05/17/18 07:30 05/17/18 07:30 PT 10.8 SECONDS (9.4-12.5) 05/14/18 12:50 INR 0.94 05/14/18 12:50 APTT 29.2 Seconds (25.1-36.5) 05/14/18 12:50 - Constitutional Appears: Non-toxic, No Acute Distress - Head Exam Head Exam: ATRAUMATIC - Eye Exam Eye Exam: EOMI. absent: Scleral icterus - ENT Exam ENT Exam: Mucous Membranes Moist - Respiratory Exam Respiratory Exam: NORMAL BREATHING PATTERN. absent: Accessory Muscle Use, Respiratory Distress - Cardiovascular Exam Cardiovascular Exam: +S1, +S2. absent: Bradycardia, Tachycardia - GI/Abdominal Exam GI & Abdominal Exam: Soft. absent: Distended, Firm, Guarding, Rigid, Tenderness - Extremities Exam Additional comments: Right thumb, swelling improved. Dressing in place. packing out - Neurological Exam Neurological Exam: Alert, Awake, Oriented x3 - Psychiatric Exam Psychiatric exam: Normal Affect - Skin Skin Exam: Intact, Warm Assessment and Plan - Assessment and Plan (Free Text) Assessment: 47M R. Felon finger s/p exploration and debridement and I&D of R thumb MRI of Right hand pending Plan: - BID dressing changes PRN - c/w Abx - f/u results of MRI; possible osteo - abx per ID and primary team - no further acute surgical intervention needed at this time - place splint on thumb - discussed w/ Dr. Page Plastic Surgery attending PGY2
--- NOTE | 2018-05-17 16:36 | CP.PCM.PN ---
<Tyrell Carias - Last Filed: 05/17/18 16:32> Subjective - Date & Time of Evaluation Date of Evaluation: 05/17/18 Time of Evaluation: 09:00 - Subjective Subjective: Tyrell Carias PGY-1 Progress Note for Hospitalist Service Patient seen and evaluated at bedside. No acute complaints overnight. Patient states dressings recently changed. No pain at site. Denies fevers, chills, shortness of breath, diaphoresis chest pain and palpitations. Objective - Vital Signs/Intake and Output Vital Signs (last 24 hours): Temp Pulse Resp BP Pulse Ox 98.5 F 82 20 106/65 99 05/17/18 06:00 05/17/18 06:00 05/17/18 06:00 05/17/18 06:00 05/17/18 06:00 Intake and Output: 05/17/18 05/17/18 06:59 18:59 Intake Total 620 Balance 620 - Medications Medications: Current Medications Albuterol/Ipratropium (Duoneb 3 Mg/0.5 Mg (3 Ml) Ud) 3 ml IH Q2H PRN PRN Reason: Shortness of Breath Bacitracin (Bacitracin) 0 ea TOP BID JUAN JOSE Last Admin: 05/17/18 09:43 Dose: 1 ea Dextrose (Dextrose 50% Inj) 0 ml IV STAT PRN; Protocol PRN Reason: Hypoglycemia Protocol Famotidine (Pepcid) 40 mg PO HS JUAN JOSE Last Admin: 05/16/18 22:03 Dose: 40 mg Dextrose (Dextrose 5% In Water 1000 Ml) 1,000 mls @ 0 mls/hr IV .Q0M PRN; Protocol PRN Reason: Hypoglycemia Protocol Vancomycin HCl 1.5 gm/ Sodium (Chloride) 500 mls @ 167 mls/hr IVPB Q12H JUAN JOSE; Protocol Last Admin: 05/17/18 10:28 Dose: 167 mls/hr Aztreonam (Azactam 1 Gm) 100 mls @ 200 mls/hr IVPB Q8 JUAN JOSE Last Admin: 05/17/18 14:26 Dose: 200 mls/hr Acyclovir 500 mg/ Sodium (Chloride) 100 mls @ 100 mls/hr IV Q8 JUAN JOSE; Protocol Stop: 05/24/18 14:01 Last Admin: 05/17/18 14:27 Dose: 100 mls/hr Insulin Detemir (Levemir) 20 unit SC HS ON LICENSE OF [facility] Last Admin: 05/16/18 22:01 Dose: 20 unit Insulin Human Regular (Humulin R High) 0 units SC ACHS ON LICENSE OF [facility]; Protocol Last Admin: 05/17/18 12:50 Dose: 7 units Povidone Iodine (Betadine 10% Topical Soln) 10 ml TOP TID ON LICENSE OF [facility] Last Admin: 05/17/18 09:44 Dose: 1 applic Tramadol HCl (Ultram) 50 mg PO Q6 PRN PRN Reason: Pain, moderate (4-7) Last Admin: 05/17/18 06:53 Dose: 50 mg - Labs Labs: 05/17/18 07:30 05/17/18 07:30 PT 10.8 SECONDS (9.4-12.5) 05/14/18 12:50 INR 0.94 05/14/18 12:50 APTT 29.2 Seconds (25.1-36.5) 05/14/18 12:50 - Additional Findings Additional findings: - Constitutional Appears: No Acute Distress - Head Exam Head Exam: ATRAUMATIC, NORMAL INSPECTION, NORMOCEPHALIC - Eye Exam Eye Exam: EOMI, PERRL - ENT Exam ENT Exam: Mucous Membranes Moist - Neck Exam Neck Exam: Full ROM - Respiratory Exam Respiratory Exam: Clear to Ausculation Bilateral, NORMAL BREATHING PATTERN - Cardiovascular Exam Cardiovascular Exam: REGULAR RHYTHM, +S1, +S2 - GI/Abdominal Exam GI & Abdominal Exam: Soft, Normal Bowel Sounds - Extremities Exam Additional comments: rigth thumb covered in surgical dressing, saturation of serosanguinous fluid apparent - Neurological Exam Neurological Exam: Alert, Awake, Normal Gait, Oriented x3 Neuro motor strength exam: Left Upper Extremity: 5, Right Upper Extremity: 5, Left Lower Extremity: 5, Right Lower Extremity: 5 - Psychiatric Exam Psychiatric exam: Normal Affect, Normal Mood - Skin Skin Exam: Dry, Intact Assessment and Plan - Assessment and Plan (Free Text) Assessment: 47 year old AA male with past medical history of asthma and uncontrolled DM2(HgA1c 15) with right thumb abscess r/o OM secondary to penetrating trauma secondary to [place] Plan: Right thumb abscess -s/p Incision and Drainage with Dr. Page -vanc, aztreonam, acyclovir -MRI of thumb + for osteomyelitis - Gram stain shows gram neg. rods - prelim wound culture shows gram + cocci, await final report -Dr. Page following - f/u recs LBBB on EKG -EKG showing LBBB with no previous EKG for comparison -Previous EKG -troponin negative Hx of Asthma - Patient reports using ProAir inhaler at home - Current social smoker, cessation counseling provided - Duoneb prn shortness of breath DM2 - elevated glucose on admission 300+ - ISS low - ACHS - HgA1c: 15 - Levemir - CCD GI/DVT ppx - Pepcid - SCD Patient seen, case reviewed and plan approved by Dr. Benjamin. Tyrell Carias, PGY-1 <Edgardo Benjamin - Last Filed: 05/17/18 18:14> Objective - Vital Signs/Intake and Output Vital Signs (last 24 hours): Temp Pulse Resp BP Pulse Ox 98.5 F 82 20 106/65 99 05/17/18 06:00 05/17/18 06:00 05/17/18 06:00 05/17/18 06:00 05/17/18 06:00 Intake and Output: 05/17/18 05/17/18 06:59 18:59 Intake Total 620 Balance 620 - Medications Medications: Current Medications Albuterol/Ipratropium (Duoneb 3 Mg/0.5 Mg (3 Ml) Ud) 3 ml IH Q2H PRN PRN Reason: Shortness of Breath Bacitracin (Bacitracin) 0 ea TOP BID JUAN JOSE Last Admin: 05/17/18 16:59 Dose: Not Given Dextrose (Dextrose 50% Inj) 0 ml IV STAT PRN; Protocol PRN Reason: Hypoglycemia Protocol Famotidine (Pepcid) 40 mg PO HS JUAN JOSE Last Admin: 05/16/18 22:03 Dose: 40 mg Dextrose (Dextrose 5% In Water 1000 Ml) 1,000 mls @ 0 mls/hr IV .Q0M PRN; Protocol PRN Reason: Hypoglycemia Protocol Vancomycin HCl 1.5 gm/ Sodium (Chloride) 500 mls @ 167 mls/hr IVPB Q12H JUAN JOSE; Protocol Last Admin: 05/17/18 10:28 Dose: 167 mls/hr Aztreonam (Azactam 1 Gm) 100 mls @ 200 mls/hr IVPB Q8 JUAN JOSE Last Admin: 05/17/18 14:26 Dose: 200 mls/hr Acyclovir 500 mg/ Sodium (Chloride) 100 mls @ 100 mls/hr IV Q8 JUAN JOSE; Protocol Stop: 05/24/18 14:01 Last Admin: 05/17/18 14:27 Dose: 100 mls/hr Insulin Detemir (Levemir) 20 unit SC HS JUAN JOSE Last Admin: 05/16/18 22:01 Dose: 20 unit Insulin Human Regular (Humulin R High) 0 units SC ACHS JUAN JOSE; Protocol Last Admin: 05/17/18 16:58 Dose: 7 units Povidone Iodine (Betadine 10% Topical Soln) 10 ml TOP TID JUAN JOSE Last Admin: 05/17/18 09:44 Dose: 1 applic Tramadol HCl (Ultram) 50 mg PO Q6 PRN PRN Reason: Pain, moderate (4-7) Last Admin: 05/17/18 06:53 Dose: 50 mg - Labs Labs: 05/17/18 07:30 05/17/18 07:30 PT 10.8 SECONDS (9.4-12.5) 05/14/18 12:50 INR 0.94 05/14/18 12:50 APTT 29.2 Seconds (25.1-36.5) 05/14/18 12:50 Attending/Attestation - Attestation I have personally seen and examined this patient.: Yes I have fully participated in the care of the patient.: Yes I have reviewed all pertinent clinical information, including history, physical exam and plan: Yes Notes (Text): 05/17/18 18:11 47 year old male with past medical history of asthma and diabetes who presented with right thumb infection s/p trauma secondary to [place]. Continue with iv antibiotics as per ID while awaiting wound cultures which is so far growing gram positive cocci. He is s/p I&D with surgery. MRI thumb is positive for osteomyelitis. Will discuss with ID and surgery. Hemoglobin A1c is 15 and patient is on levemir. Edgardo Benjamin MD Hospitalist.
--- NOTE | 2018-05-17 20:21 | CP.PCM.PN ---
Subjective - Date & Time of Evaluation Date of Evaluation: 05/17/18 Time of Evaluation: 09:30 - Subjective Subjective: Less pain in the right thumb, no fevers, not in distress. Objective - Vital Signs/Intake and Output Vital Signs (last 24 hours): Temp Pulse Resp BP Pulse Ox 98.5 F 82 20 106/65 99 05/17/18 06:00 05/17/18 06:00 05/17/18 06:00 05/17/18 06:00 05/17/18 06:00 Intake and Output: 05/17/18 05/18/18 18:59 06:59 Intake Total 600 Output Total 3 Balance 597 - Medications Medications: Current Medications Albuterol/Ipratropium (Duoneb 3 Mg/0.5 Mg (3 Ml) Ud) 3 ml IH Q2H PRN PRN Reason: Shortness of Breath Bacitracin (Bacitracin) 0 ea TOP BID JUAN JOSE Last Admin: 05/17/18 16:59 Dose: Not Given Dextrose (Dextrose 50% Inj) 0 ml IV STAT PRN; Protocol PRN Reason: Hypoglycemia Protocol Famotidine (Pepcid) 40 mg PO HS JUAN JOSE Last Admin: 05/16/18 22:03 Dose: 40 mg Dextrose (Dextrose 5% In Water 1000 Ml) 1,000 mls @ 0 mls/hr IV .Q0M PRN; Protocol PRN Reason: Hypoglycemia Protocol Vancomycin HCl 1.5 gm/ Sodium (Chloride) 500 mls @ 167 mls/hr IVPB Q12H JUAN JOSE; Protocol Last Admin: 05/17/18 10:28 Dose: 167 mls/hr Aztreonam (Azactam 1 Gm) 100 mls @ 200 mls/hr IVPB Q8 JUAN JOSE Last Admin: 05/17/18 14:26 Dose: 200 mls/hr Acyclovir 500 mg/ Sodium (Chloride) 100 mls @ 100 mls/hr IV Q8 JUAN JOSE; Protocol Stop: 05/24/18 14:01 Last Admin: 05/17/18 14:27 Dose: 100 mls/hr Insulin Detemir (Levemir) 20 unit SC HS JUAN JOSE Last Admin: 05/16/18 22:01 Dose: 20 unit Insulin Human Regular (Humulin R High) 0 units SC ACHS JUAN JOSE; Protocol Last Admin: 05/17/18 16:58 Dose: 7 units Povidone Iodine (Betadine 10% Topical Soln) 10 ml TOP TID JUAN JOSE Last Admin: 05/17/18 09:44 Dose: 1 applic Tramadol HCl (Ultram) 50 mg PO Q6 PRN PRN Reason: Pain, moderate (4-7) Last Admin: 05/17/18 19:01 Dose: 50 mg - Labs Labs: 05/17/18 07:30 05/17/18 07:30 PT 10.8 SECONDS (9.4-12.5) 05/14/18 12:50 INR 0.94 05/14/18 12:50 APTT 29.2 Seconds (25.1-36.5) 05/14/18 12:50 - Constitutional Appears: Non-toxic, No Acute Distress - Head Exam Head Exam: NORMAL INSPECTION - Neck Exam Neck Exam: absent: Meningismus - Respiratory Exam Respiratory Exam: Decreased Breath Sounds - Cardiovascular Exam Cardiovascular Exam: +S1, +S2 - GI/Abdominal Exam GI & Abdominal Exam: Soft. absent: Tenderness - Extremities Exam Additional comments: right thumb with dressings in place Assessment and Plan - Assessment and Plan (Free Text) Plan: Assessment Right thumb abscess with osteomyelitis, growing gram positive cocci but gram stain also showed gram negative bacilli HTN DM Plan continue Vancomycin, Azactam and Acyclovir pending final wound cx results - patient will need prolonged therapy with antibiotics (at least 4-6 weeks) will continue to monitor clinically
[2018-05-17] MEDS: Insulin Detemir 100 units/ml Vial (Levemir) SC SCH (22:50)
[2018-05-17] MEDS ORDERED: Morphine 2 mg/ml ISec IVP STA (23:11)
[2018-05-18] MEDS: Aztreonam 1 Gm in NS 100mL 100 ML IVPB SCH ×3 (05:30→22:09)
[2018-05-18] MEDS: Acyclovir 500 MG in Sodium Chloride 0.9% 100 ML IV SCH ×3 (05:31→22:10)
[2018-05-18 07:53] LABS: BASO % 0.4 % (0.0-3.0); EOS % 3.2 % (1.5-5.0); GRAN # 1.93 (1.4-6.5); GRAN % 41.2 % (50.0-68.0); HEMOGLOBIN 13.3 g/dL (14.0-18.0); MEAN CELL VOLUME 94.6 fl (80.0-105.0); MEAN CORPUSCULAR HEMOGLOBIN 32.5 pg (25.0-35.0); MEAN CORPUSCULAR HGB CONC 34.4 g/dl (31.0-37.0); MEAN PLATELET VOLUME 10.8 fl (7.0-11.0); MONO % 15.2 % (1.0-6.0); RBC 4.09 10^6/uL (3.5-6.1); WHITE BLOOD COUNT 4.7 10^3/uL (4.5-11.0)
[2018-05-18 07:54] LABS: BASO # 0.02 K/mm3 (0.0-2.0); EOS # 0.2 (0.0-0.7); LYMPH # 1.9 (1.2-3.4); MONO # 0.7 (0.1-0.6)
[2018-05-18 08:00] LABS: BLOOD UREA NITROGEN 10 mg/dL (7-21); GFR NON-AFRICAN AMERICAN > 60
[2018-05-18] MEDS: Insulin Reg-HIGH-Coverage SC SCH ×4 (08:03→22:48)
[2018-05-18] MEDS: Bacitracin 500 Units/gm Oint Foilpak UD TOP SCH ×2 (09:48→17:06)
[2018-05-18] MEDS: Povidone Iodine Topical 10% Sol TOP SCH ×3 (09:49→18:22)
[2018-05-18] MEDS: Vancomycin 1.5 GM in Sodium Chloride 0.9% 500 ML IVPB SCH ×2 (09:49→22:10)
[2018-05-18] MEDS ORDERED: Insulin Detemir 100 units/ml Vial (Levemir) SC SCH (09:52)
[2018-05-18] MEDS ORDERED: Insulin Regular 1 UNITS/0.01 ML ML SC ONE ×2 (16:16→16:21)
--- NOTE | 2018-05-18 16:47 | CP.PCM.PN ---
<Tyrell Carias - Last Filed: 05/18/18 16:40> Subjective - Date & Time of Evaluation Date of Evaluation: 05/18/18 Time of Evaluation: 08:15 - Subjective Subjective: Tyrell Carias PGY-1 Progress Note for Hospitalist Service Patient seen and evaluated at bedside. No acute complaints overnight. Patient disposition reviewed regarding wound culture and gram stain with patient. Patient states dressings recently changed. No pain at site. Denies fevers, chills, shortness of breath, diaphoresis chest pain and palpitations. Objective - Vital Signs/Intake and Output Vital Signs (last 24 hours): Temp Pulse Resp BP Pulse Ox 98.6 F 90 20 107/68 97 05/18/18 14:00 05/18/18 14:00 05/18/18 14:00 05/18/18 14:00 05/18/18 14:00 Intake and Output: 05/18/18 05/18/18 06:59 18:59 Intake Total 780 Output Total 3 Balance 777 - Medications Medications: Current Medications Albuterol/Ipratropium (Duoneb 3 Mg/0.5 Mg (3 Ml) Ud) 3 ml IH Q2H PRN PRN Reason: Shortness of Breath Last Admin: 05/18/18 00:00 Dose: 3 ml Bacitracin (Bacitracin) 0 ea TOP BID JUAN JOSE Last Admin: 05/18/18 09:48 Dose: 1 ea Dextrose (Dextrose 50% Inj) 0 ml IV STAT PRN; Protocol PRN Reason: Hypoglycemia Protocol Famotidine (Pepcid) 40 mg PO HS JUAN JOSE Last Admin: 05/17/18 22:39 Dose: 40 mg Dextrose (Dextrose 5% In Water 1000 Ml) 1,000 mls @ 0 mls/hr IV .Q0M PRN; Protocol PRN Reason: Hypoglycemia Protocol Vancomycin HCl 1.5 gm/ Sodium (Chloride) 500 mls @ 167 mls/hr IVPB Q12H JUAN JOSE; P rotocol Last Admin: 05/18/18 09:49 Dose: 167 mls/hr Aztreonam (Azactam 1 Gm) 100 mls @ 200 mls/hr IVPB Q8 JUAN JOSE Last Admin: 05/18/18 15:38 Dose: 200 mls/hr Acyclovir 500 mg/ Sodium (Chloride) 100 mls @ 100 mls/hr IV Q8 JUAN JOSE; Protocol Stop: 05/24/18 14:01 Last Admin: 05/18/18 13:47 Dose: 100 mls/hr Insulin Detemir (Levemir) 24 unit SC HS JUAN JOSE Insulin Human Regular (Humulin R High) 0 units SC ACHS JUAN JOSE; Protocol Last Admin: 05/18/18 16:34 Dose: 15 units Povidone Iodine (Betadine 10% Topical Soln) 10 ml TOP TID JUAN JOSE Last Admin: 05/18/18 13:48 Dose: 1 applic Tramadol HCl (Ultram) 50 mg PO Q6 PRN PRN Reason: Pain, moderate (4-7) Last Admin: 05/18/18 15:38 Dose: 50 mg - Labs Labs: 05/18/18 07:20 05/18/18 07:20 PT 10.8 SECONDS (9.4-12.5) 05/14/18 12:50 INR 0.94 05/14/18 12:50 APTT 29.2 Seconds (25.1-36.5) 05/14/18 12:50 - Additional Findings Additional findings: - Constitutional Appears: No Acute Distress - Head Exam Head Exam: ATRAUMATIC, NORMAL INSPECTION, NORMOCEPHALIC - Eye Exam Eye Exam: EOMI, PERRL - ENT Exam ENT Exam: Mucous Membranes Moist - Neck Exam Neck Exam: Full ROM - Respiratory Exam Respiratory Exam: Clear to Ausculation Bilateral, NORMAL BREATHING PATTERN - Cardiovascular Exam Cardiovascular Exam: REGULAR RHYTHM, +S1, +S2 - GI/Abdominal Exam GI & Abdominal Exam: Soft, Normal Bowel Sounds - Extremities Exam Additional comments: right thumb covered in surgical dressing, saturation of serosanguinous fluid apparent - Neurological Exam Neurological Exam: Alert, Awake, Normal Gait, Oriented x3 Neuro motor strength exam: Left Upper Extremity: 5, Right Upper Extremity: 5, Left Lower Extremity: 5, Right Lower Extremity: 5 - Psychiatric Exam Psychiatric exam: Normal Affect, Normal Mood - Skin Skin Exam: Dry, Intact Assessment and Plan - Assessment and Plan (Free Text) Assessment: 47 year old AA male with past medical history of asthma and uncontrolled DM2(HgA1c 15) with right thumb abscess r/o OM secondary to penetrating trauma secondary to [place]. Upon further investigation, and contrary to previous reports, patient trauma happened at home while making brownies and not at work. Plan: Right thumb abscess -s/p Incision and Drainage with Dr. Page -vanc, aztreonam, acyclovir - ID consult -MRI of thumb + for osteomyelitis - Gram stain shows gram neg. rods - prelim wound culture shows strep viridans, awaiting final report -Dr. Page following - no further surgical management - pain control with Tramadol 50 mg q6 LBBB on EKG -EKG showing LBBB with no previous EKG for comparison -Previous EKG -troponin negative Hx of Asthma - Patient reports using ProAir inhaler at home - Current social smoker, cessation counseling provided - Duoneb prn for shortness of breath DM2 - elevated glucose on admission 300+ - ISS high - ACHS - HgA1c: 15 - Levemir 24 units HS - Humulin 70/30 10 units AC GI/DVT ppx - Pepcid - SCD Patient seen, case reviewed and plan approved by Dr. Benjamin. Tyrell Carias, PGY-1 <Edgardo Benjamin - Last Filed: 05/19/18 07:41> Objective - Vital Signs/Intake and Output Vital Signs (last 24 hours): Temp Pulse Resp BP Pulse Ox 98.7 F 80 16 116/82 99 05/18/18 22:11 05/18/18 22:11 05/18/18 22:11 05/18/18 22:11 05/18/18 22:11 Intake and Output: 05/19/18 05/19/18 06:59 18:59 Intake Total 360 Balance 360 - Medications Medications: Current Medications Albuterol/Ipratropium (Duoneb 3 Mg/0.5 Mg (3 Ml) Ud) 3 ml IH Q2H PRN PRN Reason: Shortness of Breath Last Admin: 05/18/18 00:00 Dose: 3 ml Bacitracin (Bacitracin) 0 ea TOP BID JUAN JOSE Last Admin: 05/18/18 17:06 Dose: 1 ea Dextrose (Dextrose 50% Inj) 0 ml IV STAT PRN; Protocol PRN Reason: Hypoglycemia Protocol Famotidine (Pepcid) 40 mg PO HS JUAN JOSE Last Admin: 05/18/18 23:41 Dose: 40 mg Dextrose (Dextrose 5% In Water 1000 Ml) 1,000 mls @ 0 mls/hr IV .Q0M PRN; P rotocol PRN Reason: Hypoglycemia Protocol Vancomycin HCl 1.5 gm/ Sodium (Chloride) 500 mls @ 167 mls/hr IVPB Q12H JUAN JOSE; Protocol Last Admin: 05/18/18 22:10 Dose: 167 mls/hr Aztreonam (Azactam 1 Gm) 100 mls @ 200 mls/hr IVPB Q8 JUAN JOSE Last Admin: 05/19/18 05:28 Dose: 200 mls/hr Acyclovir 500 mg/ Sodium (Chloride) 100 mls @ 100 mls/hr IV Q8 JUAN JOSE; Protocol Stop: 05/24/18 14:01 Last Admin: 05/19/18 05:28 Dose: 100 mls/hr Insulin Detemir (Levemir) 24 unit SC HS JUAN JOSE Last Admin: 05/18/18 22:09 Dose: 1 unit Insulin Human Regular (Humulin R High) 0 units SC ACHS JUAN JOSE; Protocol Last Admin: 05/19/18 07:36 Dose: Not Given Povidone Iodine (Betadine 10% Topical Soln) 10 ml TOP TID JUAN JOSE Last Admin: 05/18/18 18:22 Dose: 1 applic Tramadol HCl (Ultram) 50 mg PO Q6 PRN PRN Reason: Pain, moderate (4-7) Last Admin: 05/18/18 15:38 Dose: 50 mg - Labs Labs: 05/18/18 07:20 05/18/18 07:20 PT 10.8 SECONDS (9.4-12.5) 05/14/18 12:50 INR 0.94 05/14/18 12:50 APTT 29.2 Seconds (25.1-36.5) 05/14/18 12:50 Attending/Attestation - Attestation I have personally seen and examined this patient.: Yes I have fully participated in the care of the patient.: Yes I have reviewed all pertinent clinical information, including history, physical exam and plan: Yes Notes (Text): 05/18/18 47 year old male with past medical history of asthma and diabetes who presented with right thumb infection s/p trauma secondary to [place]. He is s/p I&D with surgery. MRI thumb is positive for osteomyelitis. Continue with iv antibiotics as per ID while awaiting final wound culture/sensitivities. He is on levemir and insulin ss. He is upset about his diet in hospital although I explained to him he is on a diabetic diet due to poorly controlled diabetes. Edgardo Benjamin MD Hospitalist.
[2018-05-18] MEDS ORDERED: Bacitracin Ointment 30 GM TUBE TOP STA (19:41)
--- NOTE | 2018-05-19 02:55 | PN ---
DATE: 05/18/2018 SUBJECTIVE: The patient was seen earlier today. No acute distress, nontoxic. PHYSICAL EXAMINATION: VITAL SIGNS: Temperature is 98, blood pressure is 107/60, respiratory rate 18. HEENT: Unremarkable. NECK: Supple. LUNGS: Have decreased breath sounds. HEART: Normal S1 and S2. ABDOMEN: Soft. LABORATORY EXAMINATION: Reveals white count of 4.7, hemoglobin of 13. BUN of 10, creatinine of 0.7. The patient's HIV is nonreactive. Microbiology reveals Strep viridans from the thumb. There are also many gram-negative rods on gram-stain, but have not grown. Review of orders reveals that the patient to be on aztreonam, vancomycin, and acyclovir. ASSESSMENT AND PLAN: A 47-year-old male with right thumb abscess of osteomyelitis, grown gram-positive cocci and gram-negative carol on stain, diabetes, hypertension. On vancomycin and acyclovir. We will check on the identification and sensitivity. The patient's MRI is consistent for osteomyelitis. We will follow closely with you. Gustavo Burgess MD
[2018-05-19] MEDS: Acyclovir 500 MG in Sodium Chloride 0.9% 100 ML IV SCH ×2 (05:28→17:18)
[2018-05-19] MEDS: Aztreonam 1 Gm in NS 100mL 100 ML IVPB SCH ×2 (05:28→13:24)
[2018-05-19] MEDS: Insulin Reg-HIGH-Coverage SC SCH ×3 (07:36→17:18)
[2018-05-19 07:52] LABS: BASO # 0.01 K/mm3 (0.0-2.0); BASO % 0.2 % (0.0-3.0); EOS # 0.2 (0.0-0.7); EOS % 3.5 % (1.5-5.0); GRAN # 1.8 (1.4-6.5); GRAN % 39.2 % (50.0-68.0); HEMOGLOBIN 13.6 g/dL (14.0-18.0); LYMPH % 42.9 % (22.0-35.0); MEAN CELL VOLUME 92.9 fl (80.0-105.0); MEAN CORPUSCULAR HEMOGLOBIN 32.1 pg (25.0-35.0); MEAN CORPUSCULAR HGB CONC 34.5 g/dl (31.0-37.0); MEAN PLATELET VOLUME 9.9 fl (7.0-11.0); MONO # 0.7 (0.1-0.6); MONO % 14.2 % (1.0-6.0); RBC 4.24 10^6/uL (3.5-6.1); RED CELL DISTRIBUTION WIDTH 12.3 % (11.5-14.5); WHITE BLOOD COUNT 4.6 10^3/uL (4.5-11.0)
[2018-05-19] MEDS ORDERED: Insulin Human NPH/Reg 70/30 Vial(3 ml) SC SCH (08:00)
[2018-05-19 08:07] LABS: BLOOD UREA NITROGEN 8 mg/dL (7-21); CALCIUM 9.2 mg/dL (8.4-10.5); GFR NON-AFRICAN AMERICAN > 60
[2018-05-19 09:00] VITALS: RESP 20
[2018-05-19] MEDS: Povidone Iodine Topical 10% Sol TOP SCH ×3 (09:15→17:17)
[2018-05-19] MEDS: Bacitracin 500 Units/gm Oint Foilpak UD TOP SCH ×2 (09:15→17:17)
[2018-05-19] MEDS: Vancomycin 1.5 GM in Sodium Chloride 0.9% 500 ML IVPB SCH (09:29)
[2018-05-19] MEDS: Insulin Lispro 1 UNITS/0.01 ML SC SCH ×2 (11:42→17:17)
--- NOTE | 2018-05-19 13:09 | CP.PCM.PN ---
<Tyrell Carias - Last Filed: 05/19/18 14:08> Subjective - Date & Time of Evaluation Date of Evaluation: 05/19/18 Time of Evaluation: 07:45 - Subjective Subjective: Tyrell Carias PGY-1 Progress Note for Hospitalist Service Patient seen and evaluated at bedside. No acute complaints overnight. Patient was seen ambulating around room and floor with ease. Disposition reviewed regarding wound culture and gram stain with patient. No pain on thumb presently. Denies fevers, chills, shortness of breath, diaphoresis chest pain and palp itations. Objective - Vital Signs/Intake and Output Vital Signs (last 24 hours): Temp Pulse Resp BP Pulse Ox 98 F 59 L 20 106/61 97 05/19/18 06:00 05/19/18 06:00 05/19/18 06:00 05/19/18 06:00 05/19/18 06:00 Intake and Output: 05/19/18 05/19/18 06:59 18:59 Intake Total 360 Balance 360 - Medications Medications: Current Medications Albuterol/Ipratropium (Duoneb 3 Mg/0.5 Mg (3 Ml) Ud) 3 ml IH Q2H PRN PRN Reason: Shortness of Breath Last Admin: 05/18/18 00:00 Dose: 3 ml Bacitracin (Bacitracin) 0 ea TOP BID JUAN JOSE Last Admin: 05/19/18 09:15 Dose: 1 ea Dextrose (Dextrose 50% Inj) 0 ml IV STAT PRN; Protocol PRN Reason: Hypoglycemia Protocol Famotidine (Pepcid) 40 mg PO HS JUAN JOSE Last Admin: 05/18/18 23:41 Dose: 40 mg Dextrose (Dextrose 5% In Water 1000 Ml) 1,000 mls @ 0 mls/hr IV .Q0M PRN; Protocol PRN Reason: Hypoglycemia Protocol Vancomycin HCl 1.5 gm/ Sodium (Chloride) 500 mls @ 167 mls/hr IVPB Q12H JUAN JOSE; Protocol Last Admin: 05/19/18 09:29 Dose: 167 mls/hr Aztreonam (Azactam 1 Gm) 100 mls @ 200 mls/hr IVPB Q8 JUAN JOSE Last Admin: 05/19/18 05:28 Dose: 200 mls/hr Acyclovir 500 mg/ Sodium (Chloride) 100 mls @ 100 mls/hr IV Q8 [facility]; Protocol Stop: 05/24/18 14:01 Last Admin: 05/19/18 05:28 Dose: 100 mls/hr Insulin Detemir (Levemir) 24 unit SC HS [facility] Last Admin: 05/18/18 22:09 Dose: 1 unit Insulin Human Lispro (Humalog) 5 units SC AC [facility] Last Admin: 05/19/18 11:42 Dose: 5 units Insulin Human Regular (Humulin R High) 0 units SC ACHS [facility]; Protocol Last Admin: 05/19/18 11:39 Dose: 7 units Povidone Iodine (Betadine 10% Topical Soln) 10 ml TOP TID JUAN JOSE Last Admin: 05/19/18 09:15 Dose: 1 applic Tramadol HCl (Ultram) 50 mg PO Q6 PRN PRN Reason: Pain, moderate (4-7) Last Admin: 05/18/18 15:38 Dose: 50 mg - Labs Labs: 05/19/18 07:20 05/19/18 07:20 PT 10.8 SECONDS (9.4-12.5) 05/14/18 12:50 INR 0.94 05/14/18 12:50 APTT 29.2 Seconds (25.1-36.5) 05/14/18 12:50 - Additional Findings Additional findings: - Constitutional Appears: No Acute Distress - Head Exam Head Exam: ATRAUMATIC, NORMAL INSPECTION, NORMOCEPHALIC - Eye Exam Eye Exam: EOMI, PERRL - ENT Exam ENT Exam: Mucous Membranes Moist - Neck Exam Neck Exam: Full ROM - Respiratory Exam Respiratory Exam: Clear to Ausculation Bilateral, NORMAL BREATHING PATTERN - Cardiovascular Exam Cardiovascular Exam: REGULAR RHYTHM, +S1, +S2 - GI/Abdominal Exam GI & Abdominal Exam: Soft, Normal Bowel Sounds - Extremities Exam Additional comments: right thumb covered in surgical dressing, no saturation of serosanguinous fluid apparent - Neurological Exam Neurological Exam: Alert, Awake, Normal Gait, Oriented x3 Neuro motor strength exam: Left Upper Extremity: 5, Right Upper Extremity: 5, Left Lower Extremity: 5, Right Lower Extremity: 5 - Psychiatric Exam Psychiatric exam: Normal Affect, Normal Mood - Skin Skin Exam: Dry, Intact Assessment and Plan - Assessment and Plan (Free Text) Assessment: 47 year old AA male with past medical history of asthma and uncontrolled DM2(HgA1c 15) with right thumb abscess r/o OM secondary to penetrating trauma secondary to walnut shell. Upon further investigation, and contrary to previous reports, patient trauma happened at home while making brownies and not at work. Plan: Right thumb abscess - s/p Incision and Drainage with Dr. Page - vanc, aztreonam, acyclovir - ID consult - MRI of thumb + for osteomyelitis - Gram stain shows gram neg. rods - Wound culture shows strep viridans, awaiting ID input regarding sensitivities. PICC line to be placed today for ongoing IV ABx infusion. - f/u PICC line insertion for 4-6 weeks of antibiotics - Dr. Page following - no further surgical management - pain control with Tramadol 50 mg q6 - HIV neg LBBB on EKG -EKG showing LBBB with no previous EKG for comparison -Previous EKG -Troponin negative Hx of Asthma - Patient reports using ProAir inhaler at home - Current social smoker, cessation counseling provided - Duoneb prn for shortness of breath DM2 - elevated glucose on admission 300+ - ISS high - ACHS - HgA1c: 15 - Levemir 24 units HS - Humulalog 5 units AC GI/DVT ppx - Pepcid - SCD Dispo: Home with IV infusion Patient seen, case reviewed and plan approved by Dr. Benjamin. Tyrell Carias, PGY-1 <Edgardo Benjamin - Last Filed: 05/19/18 18:48> Objective - Vital Signs/Intake and Output Vital Signs (last 24 hours): Temp Pulse Resp BP Pulse Ox 98.5 F 87 20 126/85 99 05/19/18 14:00 05/19/18 14:00 05/19/18 14:00 05/19/18 14:00 05/19/18 14:00 Intake and Output: 05/19/18 05/19/18 06:59 18:59 Intake Total 360 Balance 360 - Labs Labs: 05/19/18 07:20 05/19/18 07:20 PT 10.8 SECONDS (9.4-12.5) 05/14/18 12:50 INR 0.94 05/14/18 12:50 APTT 29.2 Seconds (25.1-36.5) 05/14/18 12:50 Attending/Attestation - Attestation I have personally seen and examined this patient.: Yes I have fully participated in the care of the patient.: Yes I have reviewed all pertinent clinical information, including history, physical exam and plan: Yes Notes (Text): 05/19/18 18:47 47 year old male with past medical history of asthma and diabetes who presented with right thumb infection s/p trauma secondary to walnut shell. He is s/p I&D with surgery. MRI thumb is positive for osteomyelitis. Continue with iv antibiotics as per ID. Wound culture is growing strep viridians. Will discuss with ID regarding regard ing outpatient antibiotics for d/c planning. He is on levemir and insulin ss. Edgardo Benjamin MD Hospitalist.
[2018-05-19 15:07] VITALS: BP 126/85; PULSE 87; TEMP 98.5; O2SAT 99
--- NOTE | 2018-05-19 16:42 | CP.PCM.DIS ---
<Tyrell Carias - Last Filed: 05/20/18 09:10> Provider - Provider Date of Admission: 05/14/18 12:48 Attending physician: Edgardo Benjamin MD Primary care physician: Dr. Carreon Consults: 05/14/18 14:44 Consult [Physician Consult] Routine Comment: Consulting Provider: Raul Page Consulting Physician: Raul Page Reason for Consult: right thumb infection 05/14/18 15:18 Physician Consult Routine Comment: Consulting Provider: Gustavo Burgess Consulting Physician: Gustavo Burgess Reason for Consult: right thumb abscess, Abx 05/14/18 17:35 Diabetic Education Referral Routine Comment: blood sugar 383 in ed Physician Instructions: Reason For Exam: eval Time Spent in preparation of Discharge (in minutes): 45 Hospital Course - Lab Results Lab Results: Micro Results 05/14/18 13:15 Blood-Venous Blood Culture - Final NO GROWTH AFTER 5 DAYS 05/14/18 13:15 Blood-Venous Gram Stain - Final TEST NOT PERFORMED 05/14/18 12:50 Blood-Venous Blood Culture - Final NO GROWTH AFTER 5 DAYS 05/14/18 12:50 Blood-Venous Gram Stain - Final TEST NOT PERFORMED 05/14/18 20:30 Abscess - Thumb-Left Gram Stain - Final 05/14/18 20:30 Abscess - Thumb-Left Wound Culture - Final Streptococcus Viridans Most Recent Lab Values WBC 4.6 10^3/uL (4.5-11.0) 05/19/18 07:20 RBC 4.24 10^6/uL (3.5-6.1) 05/19/18 07:20 Hgb 13.6 g/dL (14.0-18.0) L 05/19/18 07:20 Hct 39.4 % (42.0-52.0) L 05/19/18 07:20 MCV 92.9 fl (80.0-105.0) 05/19/18 07:20 MCH 32.1 pg (25.0-35.0) 05/19/18 07:20 MCHC 34.5 g/dl (31.0-37.0) 05/19/18 07:20 RDW 12.3 % (11.5-14.5) 05/19/18 07:20 Plt Count 216 10^3/uL (120.0-450.0) 05/19/18 07:20 MPV 9.9 fl (7.0-11.0) 05/19/18 07:20 Gran % 39.2 % (50.0-68.0) L 05/19/18 07:20 Lymph % (Auto) 42.9 % (22.0-35.0) H 05/19/18 07:20 Lincoln % (Auto) 14.2 % (1.0-6.0) H 05/19/18 07:20 Eos % (Auto) 3.5 % (1.5-5.0) 05/19/18 07:20 Baso % (Auto) 0.2 % (0.0-3.0) 05/19/18 07:20 Gran # 1.80 (1.4-6.5) 05/19/18 07:20 Lymph # (Auto) 2.0 (1.2-3.4) 05/19/18 07:20 Lincoln # (Auto) 0.7 (0.1-0.6) H 05/19/18 07:20 Eos # (Auto) 0.2 (0.0-0.7) 05/19/18 07:20 Baso # (Auto) 0.01 K/mm3 (0.0-2.0) 05/19/18 07:20 PT 10.8 SECONDS (9.4-12.5) 05/14/18 12:50 INR 0.94 05/14/18 12:50 APTT 29.2 Seconds (25.1-36.5) 05/14/18 12:50 Sodium 138 mmol/L (132-148) 05/19/18 07:20 Potassium 3.7 mmol/L (3.6-5.0) 05/19/18 07:20 Chloride 104 mmol/L (98-107) 05/19/18 07:20 Carbon Dioxide 29 mmol/L (21-33) 05/19/18 07:20 Anion Gap 9 (10-20) L 05/19/18 07:20 BUN 8 mg/dL (7-21) 05/19/18 07:20 Creatinine 0.5 mg/dl (0.8-1.5) L 05/19/18 07:20 Est GFR ( Amer) > 60 05/19/18 07:20 Est GFR (Non-Af Amer) > 60 05/19/18 07:20 POC Glucose (mg/dL) 248 mg/dL (65-110) H 05/18/18 11:27 Random Glucose 166 mg/dL (70-110) H 05/19/18 07:20 Hemoglobin A1c 15.0 % (4.2-6.5) H 05/14/18 12:00 Calcium 9.2 mg/dL (8.4-10.5) 05/19/18 07:20 Phosphorus 3.8 mg/dL (2.5-4.5) 05/14/18 12:00 Magnesium 1.8 mg/dL (1.7-2.2) 05/14/18 12:00 Total Bilirubin 0.4 mg/dL (0.2-1.3) 05/16/18 07:00 AST 15 U/L (17-59) L 05/16/18 07:00 ALT 20 U/L (7-56) 05/16/18 07:00 Alkaline Phosphatase 83 U/L (38-126) 05/16/18 07:00 Lactate Dehydrogenase 329 U/L (333-699) L 05/14/18 16:18 Total Creatine Kinase 46 U/L (35-230) 05/14/18 16:18 Troponin I < 0.01 ng/mL 05/14/18 16:18 Total Protein 6.4 g/dL (5.8-8.3) 05/16/18 07:00 Albumin 3.3 g/dL (3.0-4.8) 05/16/18 07:00 Globulin 3.0 gm/dL 05/16/18 07:00 Albumin/Globulin Ratio 1.1 (1.1-1.8) 05/16/18 07:00 HIV 1&2 Ag/Ab, 4th Gen Nonreactive (Nonreactive) 05/15/18 09:50 - Hospital Course Hospital Course: Tyrell Carias, PGY-1 Discharge Summary for Hospitalist Service 47 year old male with past medical history of asthma and reported pre-diabetes who presented with right thumb infection s/p trauma secondary to walnut shell at home. Patient received an I&D of R thumb with hand/plastic surgery (Dr. Page). MRI t humb was found to be positive for osteomyelitis. Patient was on IV antibiotics Vancomycin and Aztreonam as well as Acyclovir for possible herpetic latoya as per ID. Pain control with Tramadol 50 mg q6. Thumb was placed in splint and monitored for further infection. Patient was found to have new onset uncontrolled DM with HGba1c of 15. Patient was on Levemir which was increased due to elevated sugars. Patient was also started on Humalog 5 units before meals as well as well as ISS. Sugars were elevated but came down to 159 and 166. Patient received diabetic education and reported compliance and knowledge of how to use insulin due to other diabetic family members. Patient was found to be ambulating without difficulty over course of hospital stay. Wound culture was found to be growing Strep Viridians. PICC line placement was originally considered but after consultation, no home IV infusion was necessary as culture was pansensitive. Due to Penicillin allergy, patient was set to receive Zyvox 600 mg BID PO for 4 weeks upon discharge. Patient was sent for scripts for weekly ESR, CRP, CBC, CMP while on antibiotics and told to stop Zyvox if patient develops thrombocytopenia. Patient was told to fax lab results over to PMD's office (Dr. Carreon) so that PMD can monitor the patient. Patient should follow up with PMD as outpatient. Patient exhibited understanding. Patient is hemodynamically stable and set for discharge. Questions were answered in depth and to patient's satisfaction. For complete details of hospital course, please refer to EMR. Patient seen, case reviewed and plan approved by Dr. Benjamin. Discharge Exam - Additional Findings Additional findings: - Constitutional Appears: No Acute Distress - Head Exam Head Exam: ATRAUMATIC, NORMAL INSPECTION, NORMOCEPHALIC - Eye Exam Eye Exam: EOMI, PERRL - ENT Exam ENT Exam: Mucous Membranes Moist - Neck Exam Neck Exam: Full ROM - Respiratory Exam Respiratory Exam: Clear to Ausculation Bilateral, NORMAL BREATHING PATTERN - Cardiovascular Exam Cardiovascular Exam: REGULAR RHYTHM, +S1, +S2 - GI/Abdominal Exam GI & Abdominal Exam: Soft, Normal Bowel Sounds - Extremities Exam Additional comments: right thumb covered in surgical dressing, no serosanguinous fluid apparent. - Neurological Exam Neurological Exam: Alert, Awake, Normal Gait, Oriented x3 Neuro motor strength exam: Left Upper Extremity: 5, Right Upper Extremity: 5, Left Lower Extremity: 5, Right Lower Extremity: 5 - Psychiatric Exam Psychiatric exam: Normal Affect, Normal Mood - Skin Skin Exam: Dry, Intact Discharge Plan - Discharge Medications Prescriptions: Insulin Detemir [Levemir] 24 unit SC HS #1 unit Insulin Lispro [humALOG] 5 units SC AC #1 ml Linezolid [Zyvox] 600 mg PO BID #56 tab - Follow Up Plan Condition: STABLE Disposition: HOME/ ROUTINE Patient education suggested?: Yes Instructions: Cellulitis (Skin Infection), Adult (DC), Flu Vaccine, Cellulitis (DC), Cellulitis (GEN), Abscess (GEN) Additional Instructions: Please follow up with Dr. Carreon within 5 days. Please continue your medications as prescribed. Please perform weekly labs - CBC, CMP, CRP and ESR as prescribed. Please take your antibiotic by mouth as prescribed for one month twice a day. Please stop your Zyvox (antibiotic) if you develop low platelets on weekly labs. Labs are to be faxed over to Dr. Carreon office weekly so it can be monitored. Please follow up closely. If symptoms worsen or reoccur, please visit nearest emergency department. Referrals: Raul Page MD [Staff Provider] - Wai Leonard MD [Staff Provider] - <Edgardo Benjamin - Last Filed: 05/20/18 09:34> Provider - Provider Date of Admission: 05/14/18 12:48 Attending physician: Edgardo Benjamin MD Consults: 05/14/18 14:44 Consult [Physician Consult] Routine Comment: Consulting Provider: Raul Page Consulting Physician: Raul Page Reason for Consult: right thumb infection 05/14/18 15:18 Physician Consult Routine Comment: Consulting Provider: Gustavo Burgess Consulting Physician: Gustavo Burgess Reason for Consult: right thumb abscess, Abx 05/14/18 17:35 Diabetic Education Referral Routine Comment: blood sugar 383 in ed Physician Instructions: Reason For Exam: al Hospital Course - Lab Results Lab Results: Micro Results 05/14/18 13:15 Blood-Venous Blood Culture - Final NO GROWTH AFTER 5 DAYS 05/14/18 13:15 Blood-Venous Gram Stain - Final TEST NOT PERFORMED 05/14/18 12:50 Blood-Venous Blood Culture - Final NO GROWTH AFTER 5 DAYS 05/14/18 12:50 Blood-Venous Gram Stain - Final TEST NOT PERFORMED 05/14/18 20:30 Abscess - Thumb-Left Gram Stain - Final 05/14/18 20:30 Abscess - Thumb-Left Wound Culture - Final Streptococcus Viridans Most Recent Lab Values WBC 4.6 10^3/uL (4.5-11.0) 05/19/18 07:20 RBC 4.24 10^6/uL (3.5-6.1) 05/19/18 07:20 Hgb 13.6 g/dL (14.0-18.0) L 05/19/18 07:20 Hct 39.4 % (42.0-52.0) L 05/19/18 07:20 MCV 92.9 fl (80.0-105.0) 05/19/18 07:20 MCH 32.1 pg (25.0-35.0) 05/19/18 07:20 MCHC 34.5 g/dl (31.0-37.0) 05/19/18 07:20 RDW 12.3 % (11.5-14.5) 05/19/18 07:20 Plt Count 216 10^3/uL (120.0-450.0) 05/19/18 07:20 MPV 9.9 fl (7.0-11.0) 05/19/18 07:20 Gran % 39.2 % (50.0-68.0) L 05/19/18 07:20 Lymph % (Auto) 42.9 % (22.0-35.0) H 05/19/18 07:20 Lincoln % (Auto) 14.2 % (1.0-6.0) H 05/19/18 07:20 Eos % (Auto) 3.5 % (1.5-5.0) 05/19/18 07:20 Baso % (Auto) 0.2 % (0.0-3.0) 05/19/18 07:20 Gran # 1.80 (1.4-6.5) 05/19/18 07:20 Lymph # (Auto) 2.0 (1.2-3.4) 05/19/18 07:20 Lincoln # (Auto) 0.7 (0.1-0.6) H 05/19/18 07:20 Eos # (Auto) 0.2 (0.0-0.7) 05/19/18 07:20 Baso # (Auto) 0.01 K/mm3 (0.0-2.0) 05/19/18 07:20 PT 10.8 SECONDS (9.4-12.5) 05/14/18 12:50 INR 0.94 05/14/18 12:50 APTT 29.2 Seconds (25.1-36.5) 05/14/18 12:50 Sodium 138 mmol/L (132-148) 05/19/18 07:20 Potassium 3.7 mmol/L (3.6-5.0) 05/19/18 07:20 Chloride 104 mmol/L (98-107) 05/19/18 07:20 Carbon Dioxide 29 mmol/L (21-33) 05/19/18 07:20 Anion Gap 9 (10-20) L 05/19/18 07:20 BUN 8 mg/dL (7-21) 05/19/18 07:20 Creatinine 0.5 mg/dl (0.8-1.5) L 05/19/18 07:20 Est GFR ( Amer) > 60 05/19/18 07:20 Est GFR (Non-Af Amer) > 60 05/19/18 07:20 POC Glucose (mg/dL) 241 mg/dL (65-110) H 05/19/18 16:12 Random Glucose 166 mg/dL (70-110) H 05/19/18 07:20 Hemoglobin A1c 15.0 % (4.2-6.5) H 05/14/18 12:00 Calcium 9.2 mg/dL (8.4-10.5) 05/19/18 07:20 Phosphorus 3.8 mg/dL (2.5-4.5) 05/14/18 12:00 Magnesium 1.8 mg/dL (1.7-2.2) 05/14/18 12:00 Total Bilirubin 0.4 mg/dL (0.2-1.3) 05/16/18 07:00 AST 15 U/L (17-59) L 05/16/18 07:00 ALT 20 U/L (7-56) 05/16/18 07:00 Alkaline Phosphatase 83 U/L (38-126) 05/16/18 07:00 Lactate Dehydrogenase 329 U/L (333-699) L 05/14/18 16:18 Total Creatine Kinase 46 U/L (35-230) 05/14/18 16:18 Troponin I < 0.01 ng/mL 05/14/18 16:18 Total Protein 6.4 g/dL (5.8-8.3) 05/16/18 07:00 Albumin 3.3 g/dL (3.0-4.8) 05/16/18 07:00 Globulin 3.0 gm/dL 05/16/18 07:00 Albumin/Globulin Ratio 1.1 (1.1-1.8) 05/16/18 07:00 HIV 1&2 Ag/Ab, 4th Gen Nonreactive (Nonreactive) 05/15/18 09:50 Attending/Attestation - Attestation I have personally seen and examined this patient.: Yes I have fully participated in the care of the patient.: Yes I have reviewed all pertinent clinical information, including history, physical exam and plan: Yes Notes (Text): 05/19/18 47 year old male with past medical history of asthma and diabetes who presented with right thumb infection s/p trauma secondary to walnut [place]. He is s/p I&D with surgery. MRI thumb was positive for osteomyelitis and patient was on iv antibiotics being followed by ID. Wound culture grew strep viridians and ID recommended PO zyvox upon discharge. Patient was started on levemir for uncontrolled diabetes. Patient is discharged home on po zyvox. Monitor weekly cbc, cmp, ers, crp. Monitor for thrombocytopenia. Follow up with pmd and surgery. Edgardo Benjamin MD Hospitalist.
--- NOTE | 2018-05-19 19:16 | CP.PCM.PN ---
Subjective - Date & Time of Evaluation Date of Evaluation: 05/19/18 Time of Evaluation: 09:45 - Subjective Subjective: Comfortable, improved pain in the right thumb, no nausea, no fevers. Objective - Vital Signs/Intake and Output Vital Signs (last 24 hours): Temp Pulse Resp BP Pulse Ox 98.5 F 87 20 126/85 99 05/19/18 14:00 05/19/18 14:00 05/19/18 14:00 05/19/18 14:00 05/19/18 14:00 - Labs Labs: 05/19/18 07:20 05/19/18 07:20 PT 10.8 SECONDS (9.4-12.5) 05/14/18 12:50 INR 0.94 05/14/18 12:50 APTT 29.2 Seconds (25.1-36.5) 05/14/18 12:50 - Constitutional Appears: No Acute Distress - Head Exam Head Exam: NORMAL INSPECTION - Respiratory Exam Respiratory Exam: Decreased Breath Sounds - Cardiovascular Exam Cardiovascular Exam: +S1, +S2 - GI/Abdominal Exam GI & Abdominal Exam: Soft. absent: Tenderness - Extremities Exam Additional comments: right thumb with dressings in place Assessment and Plan - Assessment and Plan (Free Text) Plan: Assessment Right thumb abscess with osteomyelitis, growing Strep viridans HTN DM Plan recommend to change antibiotics to Zyvox and will need 4 weeks of antibiotics with weekly ESR, CRP, CBC, CMP while on antibiotics and should stop Zyvox if patient develops thrombocytopenia - lab results are to be faxed over to PMD's office so that PMD can monitor the patient - should follow up with PMD as outpatient - discussed this with the hospitalist team in charge of the patient
--- NOTE | 2018-05-20 21:20 | PQF ---
PROVIDER RESPONSE TEXT: Asthma NOS REVIEWER QUERY TEXT: Asthma Specificity and Type Asthma is documented in the Medical Record. Please specify the type and severity of asthma and indic ate if this is associated with exacerbation or status asthmaticus. Such as: -- Mild intermittent -- Mild persistent -- Moderate persistent -- Severe persistent -- Exercise induced bronchospasm -- Cough variant asthma -- Other, please specify The patient's Clinical Indicators include: Please see below. Thank you. Query created by: Montse Trivedi on 05/20/2018 4:32 PM Electronically signed by: Edgardo Benjamin MD 05/20/2018 9:16 PM
--- NOTE | 2018-05-28 05:57 | OP ---
PROCEDURE DATE: 05/14/2018 SURGEON: Raul Page MD PREOPERATIVE DIAGNOSES: As follows: 1. Right thumb abscess. 2. Right hand cellulitis. 3. Low-grade osteomyelitis of the right thumb, distal phalanx. 4. Possible tenosynovitis of the right thumb. 5. Right thumb nail bed laceration. 6. Right thumb distal phalanx tuft fracture. POSTOPERATIVE DIAGNOSES: As follows: 1. Right thumb abscess. 2. Right hand cellulitis. 3. Low-grade osteomyelitis of the right thumb, distal phalanx. 4. Possible tenosynovitis of the right thumb. 5. Right thumb nail bed laceration. 6. Right thumb distal phalanx tuft fracture. PROCEDURES PERFORMED: As follows: 1. Exploration of the right thumb. 2. Debridement of soft tissue, open fracture site of the right thumb distal phalanx tuft fracture. 3. Posttreatment without manipulation of right thumb distal phalanx fracture. 4. Incision and drainage of right thumb flexor tendon sheath for tenosynovitis. ANESTHESIA: Regional: 1. Right thumb radial digital nerve block. 2. Right thumb ulnar digital nerve block. INDICATIONS FOR THE PROCEDURE: As follows: Please refer to my separately dictated ER consultation for history and physical. DESCRIPTION OF PROCEDURE: As follows: Marcaine 0.5% and 2% lidocaine were used in the radial and ulnar digital nerve block. After allowing sufficient time for the anesthetic to take effect, the right hand thumb was prepped and draped in the usual clean and sterile manner. We started the operation by opening the two incisions in the right thumb, one was just volar to the nail plate distally and one was in the ulnar crease volar radial side of the finger. With a 15-blade, I made an incision. I then explored the wound by making the incision larger. with a clamp I broke up all the loculations of the right thumb appearing finger, and I connected the two incisions. I then released of the distal bud of the flexor tendon sheath and irrigated the tendon sheath in the water. I debrided some of the soft tissue at the open fracture site. There was distal phalanx tuft fracture that was nondisplaced, but I treated in close manner without manipulation. After during the drainage and opening up the flexor tendon sheath and debriding soft tissue, left packing both wounds that are made. We compressed the finger nicely. Some of the epidermis that was smooth was also debrided. the hand in a finger splint. Care was taken back to the hospital. Then, the patient was to be admitted for IV antibiotics and MRI as well as infectious disease consult for likely long-term antibiotics related to the patient continued to have problem, may need to help for the surgery. He may be at risk for osteomyelitis. I have osteomyelitis partial amputation of this finger in the future, he understood this. I also told him that abnormal nail growth, and he may need a significant hand therapy afterwards that causes such significant swelling. Raul Page MD
--- NOTE | 2018-05-28 08:23 | CON ---
DATE: 05/14/2018 SURGEON: Raul Page MD ER consultation is as follows. HISTORY OF PRESENT ILLNESS: This is a 47-year-old right hand dominant male who presents to the emergency room with a 13-day history of worsening redness and swelling of his right thumb. I was consulted by the emergency room staff for acute infection of this patient's right hand and thumb. Thus, I came to the emergency room to review the patient. On history, the patient states that about 13 days ago, there was a walnut shell that lacerated his right thumb. He went to an emergent care clinic. He has been on oral antibiotics. Today, he presented to the emergency room with a 13-day history of worsening redness, swelling, pain, lack of range of motion, like appearance. PHYSICAL EXAMINATION: His right thumb was completely swollen, edematous . There was a little bit of pain with passive extension of the right thumb. The range of motion was extremely limited secondary to pain and swelling. However, his pollicis longus tendon appeared to be grossly intact. His sensation was significant for having paresthesias on to the volar tip but this was likely secondary to swelling. There was a little bit of erythema in the dorsal aspect of the right thumb over the first metacarpal. Hand compartments were soft. There was no tenderness to his flexor tendon sheath. There was no significant pain with passive extension of his right thumb. There was swelling and likely abscess . The x-ray was suspicious to osteomyelitis. I explained to the patient by the bedside regional nerve blocks, I would explore the finger, debride it, send some wound cultures. I told him that he is at risk for having osteomyelitis. We had Infectious Disease jury consultant see him. We should get an MRI. He may need to be on long-term antibiotics. He may need to have surgery either now or in the future. He may end up with a partial amputation of his thumb and this is a significant problem. He understood this and wished to proceed. I will now dictate a separate operative report. Raul Page MD
== END 2018-05-19 18:24 | disposition home or self-care (01) | DRG 988 ==
LOC: ED 11:51 → ERH 12:48 → 5RSO 14:12
PROVIDERS: ADMIT Internal Medicine; ATTEND Internal Medicine
PROC: 0JBJ0ZZ Excision of Right Hand Subcutaneous Tissue and Fascia, Open Approach (ICD-10-PCS; principal; 2018-05-14)
PROC: 0H9FXZZ Drainage of Right Hand Skin, External Approach (ICD-10-PCS; 2018-05-14)
DX: E11.69 Type 2 diabetes mellitus with other specified complication (principal); M86.141 Other acute osteomyelitis, right hand; L02.511 Cutaneous abscess of right hand; L03.113 Cellulitis of right upper limb; L03.011 Cellulitis of right finger; J45.909 Unspecified asthma, uncomplicated; E11.65 Type 2 diabetes mellitus with hyperglycemia; I10 Essential (primary) hypertension; F17.200 Nicotine dependence, unspecified, uncomplicated; Z91.14 Patient's other noncompliance with medication regimen; E66.01 Morbid (severe) obesity due to excess calories; Z68.32 Body mass index [BMI] 32.0-32.9, adult; S61.019A Laceration without foreign body of unspecified thumb without damage to nail, initial encounter; E78.00 Pure hypercholesterolemia, unspecified; Z88.0 Allergy status to penicillin; M65.9 Synovitis and tenosynovitis, unspecified; S61.011A Laceration without foreign body of right thumb without damage to nail, initial encounter; S62.521A Displaced fracture of distal phalanx of right thumb, initial encounter for closed fracture; X58.XXXA Exposure to other specified factors, initial encounter; Y92.009 Unspecified place in unspecified non-institutional (private) residence as the place of occurrence of the external cause

== ENCOUNTER 2018-06-21 15:13 | Emergency (ER) | payer OTHER ==
[2018-06-21 15:13] VITALS: BMI 32.8
[2018-06-21 16:21] VITALS: TEMP 98.4
--- NOTE | 2018-06-21 17:03 | ED PDOC ---
Arrival/HPI - General Historian: Patient - History of Present Illness Narrative History of Present Illness (Text): 06/21/18 17:06 47 y/o male, pmh including htn/hld/dm, penicillin allergy, here today for constipation x 5 days. Pt. stated that he has been constipated for 5 days, been having small hard stools, last bowel movement about 1-2 days ago. Pt. has chronic "low grade" osteomylitis which he already following with Dr. Carreon/Camilo/Xiao for this condition and he is not here for the thumb pain. Pt. stated that his rt. hand thumb feels well, no pain, not here to be evaluated for the rt. thumb. Pt. has no fever or chills, no abdominal pain, no rash or discoloration, no numbness or tingling, no other medical or psychological complaints. <Max Blue - Last Filed: 06/21/18 20:46> <Rachel No - Last Filed: 06/21/18 21:30> - General Chief Complaint: Medical Clearance Past Medical History - Provider Review Nursing Documentation Reviewed: Yes - Infectious Disease Hx of Infectious Diseases: None - Cardiac Hx Cardiac Disorders: Yes (enlarged heart) Hx Hypertension: Yes - Pulmonary Hx Respiratory Disorders: Yes Hx Asthma: Yes Hx Sleep Apnea: Yes Other/Comment: pt had sleep study done jun 2017 was + for sleep apnea. Pt stated" I lost 90 lbs since then and it went away." - Neurological Hx Neurological Disorder: No - HEENT Hx HEENT Disorder: No - Renal Hx Renal Disorder: No - Endocrine/Metabolic Hx Endocrine Disorders: Yes Other/Comment: pre diabetes as per pt but [facility] [phone], has pt on glipizide er 5 mg daily filled not picked up and x igduo xl 5mg/500mg daily that was picked up 11/2017 - Hematological/Oncological Hx Blood Disorders: No - Integumentary Hx Dermatological Disorder: Yes Other/Comment: right thumb and hand cellulitis noted with decreased rom, edema redness tip of right thumb white and pale and small slit noted draining sm amt pink watery drainage, nail discoloration to lower nail, brown skin to top of both feet thick toenails - Musculoskeletal/Rheumatological Hx Musculoskeletal Disorders: Yes (decreased rom right hand/thumb) - Gastrointestinal Hx Gastrointestinal Disorders: No - Genitourinary/Gynecological Hx Genitourinary Disorders: No - Psychiatric Hx Psychophysiologic Disorder: No Hx Substance Use: No - Anesthesia Hx Anesthesia: No Hx Anesthesia Reactions: No Hx Malignant Hyperthermia: No <Max Blue - Last Filed: 06/21/18 20:46> Family/Social History - Physician Review Nursing Documentation Reviewed: Yes Family/Social History: Unknown Family HX Smoking Status: Light Smoker < 10 Cigarettes Daily Hx Alcohol Use: Yes (social) Hx Substance Use: No <Max Blue - Last Filed: 06/21/18 20:46> Allergies/Home Meds <Max Blue - Last Filed: 06/21/18 20:46> <Rachel No - Last Filed: 06/21/18 21:30> Allergies/Adverse Reactions: Allergies Penicillins Allergy (Verified 06/21/18 16:19) RASH shellfish Allergy (Uncoded 06/21/18 16:19) ANAPHYLAXIS Home Medications: Home Meds Medication Instructions Recorded Confirmed RX: Albuterol Sulfate [Proair Hfa] 0.09 mg IH QID PRN 05/14/18 06/21/18 RX: Atorvastatin [Lipitor] 20 mg PO HS 05/14/18 06/21/18 RX: Carvedilol [Coreg] 3.125 mg PO DAILY 05/14/18 06/21/18 RX: Dapagliflozin/Metformin HCl 1 each PO DAILY 05/14/18 06/21/18 [Xigduo Xr 5 mg-500 mg Tablet] RX: Montelukast [Singulair] 10 mg PO DAILY 05/14/18 06/21/18 Review of Systems - Review of Systems Constitutional: absent: Fatigue, Fevers Eyes: absent: Vision Changes ENT: absent: Hearing Changes Respiratory: absent: SOB, Cough Cardiovascular: absent: Chest Pain Gastrointestinal: Constipation. absent: Abdominal Pain, Diarrhea, Nausea, Vomiting Skin: absent: Rash, Pruritis Neurological: absent: Headache, Dizziness Psychiatric: absent: Anxiety, Depression, Suicidal Ideation <Max Blue - Last Filed: 06/21/18 20:46> Physical Exam Vital Signs Reviewed: Yes Vital Signs Temp Pulse Resp BP Pulse Ox 06/21/18 16:20 98.4 F 97 H 18 116/76 97 Temperature: Afebrile Blood Pressure: Normal Pulse: Regular Respiratory Rate: Normal Appearance: Positive for: Well-Appearing, Non-Toxic, Comfortable Pain Distress: None Mental Status: Positive for: Alert and Oriented X 3 - Systems Exam Head: Present: Atraumatic, Normocephalic Pupils: Present: PERRL Extroacular Muscles: Present: EOMI Conjunctiva: Present: Normal Mouth: Present: Moist Mucous Membranes Neck: Present: Normal Range of Motion Respiratory/Chest: Present: Clear to Auscultation, Good Air Exchange. No: Respiratory Distress, Accessory Muscle Use Cardiovascular: Present: Regular Rate and Rhythm, Normal S1, S2. No: Murmurs Abdomen: Present: Distention, Normal Bowel Sounds. No: Tenderness, Peritoneal Signs, Rebound, Guarding Rectal: Present: Normal Rectal Tone, Other (Female Hand Stonecutter: RN FACULTYJAVIER Jorgensen). No: Occult Blood, Rectal Tenderness, Gross Blood, Melena, Hemorrhoids, Fissures, Nodule/Mass/Lesions Back: Present: Normal Inspection Upper Extremity: Present: Normal Inspection, Other (Rt. hand 1st digit thumb: visible healing scab and skin lichenification wound on the distal tip of the thumb, no celulitis or erythematous, no ulcer, FROM with limitation on the flexion on the PIPJ (pt. stated that this is chronic and better than last ad mission for the movement), sensation intact, motor 5/5, +radial pulse, neurovascular intact. ). No: Cyanosis, Edema Lower Extremity: Present: Normal Inspection. No: Edema Neurological: Present: GCS=15, CN II-XII Intact, Speech Normal, Motor Func Grossly Intact, Memory Normal Skin: Present: Warm, Dry, Normal Color. No: Rashes Psychiatric: Present: Alert, Oriented x 3, Normal Insight, Normal Concentration <Max Blue Q - Last Filed: 06/21/18 20:46> Vital Signs Temp Pulse Resp BP Pulse Ox 06/21/18 20:43 88 16 131/78 97 06/21/18 19:20 97 H 18 132/79 96 06/21/18 18:00 80 16 121/80 99 06/21/18 16:20 98.4 F 97 H 18 116/76 97 <Rachel No - Last Filed: 06/21/18 21:30> Medical Decision Making ED Course and Treatment: 06/21/18 17:12 -Rt. hand thumb healing well and on the oral zyvox prescription (stated that he stopped 4 days ago and though this constipation induced, advised to continue antibiotics and he will be risk of amputation if he doesn't take it), has pmd/ID/hand surgeon follow up. Discussed with Dr. Holder. -Constipation: will get xray r/o obstruction. 06/21/18 17:29 -Will check CBC for the zyvox side effect including thrombocytopenia/leukopenia. 06/21/18 18:43 -Labs show normal wbc and normal platete counts. -Abdominal xray show constipation by ER wet read with no obstruction, fleet enema ordered. 06/21/18 20:40 -Pt. had moderate amount of stool, rectal fullness sensation is resolved, still feel some stool left, magnesium citrate ordered for him so he can take it as needed. -Glucose 400, insulin ordered, repeat glucose 268 -Discharge home with magnesium citrate as needed at home, education on continue the antibiotic and please follow up with your own pmd/hand specialist and infectious disease in 2 days, high fiber diet, stay hydrated, bed rest, return to the ER for any new or worsening signs or symptoms. - RAD Interpretation Radiology Orders: Date of service: 06/21/2018 HISTORY: constipation COMPARISON: None available. FINDINGS: BOWEL: Constipation without fecal impaction or obstruction. BONES: Normal. OTHER FINDINGS: None. IMPRESSION: No evidence of mechanical obstruction or free air. Senior Case Manager: Radiologist <Max Blue - Last Filed: 06/21/18 20:46> ED Course and Treatment: 06/21/18 21:29 Spoke to patient at length about my concern that he is not taking antibiotics and that he could loose his thumb to the previously diagnosed ostemyelitis. He has also not followed up with the hand surgeon. He reports that he will follow- up with them tomorow. - Lab Interpretations Lab Results: Total Bilirubin 0.7 mg/dL (0.2-1.3) 06/21/18 17:55 AST 24 U/L (17-59) 06/21/18 17:55 ALT 31 U/L (7-56) 06/21/18 17:55 Alkaline Phosphatase 76 U/L (38-126) 06/21/18 17:55 Total Protein 7.4 g/dL (5.8-8.3) 06/21/18 17:55 Albumin 4.6 g/dL (3.0-4.8) 06/21/18 17:55 Globulin 2.8 gm/dL 06/21/18 17:55 Albumin/Globulin Ratio 1.6 (1.1-1.8) 06/21/18 17:55 - RAD Interpretation Radiology Orders: 06/21/18 17:03 obstructive series [ABD 2 VIEWS (FLAT/UP OR DECUB)] [RAD] Stat - Medication Orders Current Medication Orders: Discontinued Medications Insulin Human Regular (Humulin R) 8 units SC STAT STA Stop: 06/21/18 19:07 Last Admin: 06/21/18 19:38 Dose: 8 u Subcutaneous Administrations Document 06/21/18 19:38 CNR (Rec: 06/21/18 19:38 CNR [id number]) Injection Site MAR Injection Site Right Arm Charges for Administration # of Subcutaneous Administrations 1 Magnesium Citrate (Citrate Of Mag) 300 ml PO ONCE ONE Stop: 06/21/18 19:56 Last Admin: 06/21/18 20:15 Dose: 300 ml Sodium Phosphate (Fleet Enema) 135 ml RC STAT STA Stop: 06/21/18 18:17 Last Admin: 06/21/18 19:03 Dose: 135 ml <Rachel No - Last Filed: 06/21/18 21:30> - PA / MACHINE TENDER / Resident Statement / has reviewed & agrees with the documentation as recorded. <Max Blue - Last Filed: 06/21/18 20:46> Disposition/Present on Arrival - Present on Arrival Any Indicators Present on Arrival: No History of DVT/PE: No History of Uncontrolled Diabetes: Yes Urinary Catheter: No History of Decub. Ulcer: No History Surgical Site Infection Following: None - Disposition Have Diagnosis and Disposition been Completed?: Yes Disposition Time: 20:32 Patient Plan: Discharge <Max Blue - Last Filed: 06/21/18 20:46> <Rachel No - Last Filed: 06/21/18 21:30> - Disposition Diagnosis: Constipation, Hyperglycemia due to type 2 diabetes mellitus Disposition: HOME/ ROUTINE Condition: IMPROVED Additional Instructions: -Discharge home with magnesium citrate as needed at home, education on continue the antibiotic and please follow up with your own pmd/hand specialist and in fectious disease in 2 days, high fiber diet, stay hydrated, bed rest, return to the ER for any new or worsening signs or symptoms. Referrals: Dallin Carreon MD [Primary Care Provider] - Follow up with primary Raul Page MD [Staff Provider] - Follow up with primary Wai Leonard MD [Staff Provider] - Follow up with primary Miguel Angel Dowell DO [Staff Provider] - Follow up with primary Forms: [employer] (Citizen Of [place]), WORK NOTE
[2018-06-21 18:08] LABS: BASO # 0.02 K/mm3 (0.0-2.0); BASO % 0.3 % (0.0-3.0); EOS # 0.1 (0.0-0.7); EOS % 1.2 % (1.5-5.0); GRAN # 3.97 (1.4-6.5); GRAN % 53.9 % (50.0-68.0); HEMOGLOBIN 14.1 g/dL (14.0-18.0); LYMPH # 2.8 (1.2-3.4); LYMPH % 38.1 % (22.0-35.0); MEAN CELL VOLUME 93.1 fl (80.0-105.0); MEAN CORPUSCULAR HEMOGLOBIN 32.3 pg (25.0-35.0); MEAN CORPUSCULAR HGB CONC 34.7 g/dl (31.0-37.0); MEAN PLATELET VOLUME 11.5 fl (7.0-11.0); MONO # 0.5 (0.1-0.6); MONO % 6.5 % (1.0-6.0); RBC 4.36 10^6/uL (3.5-6.1); RED CELL DISTRIBUTION WIDTH 12.7 % (11.5-14.5); WHITE BLOOD COUNT 7.4 10^3/uL (4.5-11.0)
--- NOTE | 2018-06-21 18:48 | RAD ---
Date of service: 06/21/2018 HISTORY: constipation COMPARISON: None available. FINDINGS: BOWEL: Constipation without fecal impaction or obstruction. BONES: Normal. OTHER FINDINGS: None. IMPRESSION: No evidence of mechanical obstruction or free air.
[2018-06-21 18:53] LABS: ALB/GLOB RATIO 1.6 (1.1-1.8); ALBUMIN 4.6 g/dL (3.0-4.8); ALT/SGPT 31 U/L (7-56); AST/SGOT 24 U/L (17-59); BLOOD UREA NITROGEN 19 mg/dL (7-21); CALCIUM 9.7 mg/dL (8.4-10.5); GFR NON-AFRICAN AMERICAN > 60
[2018-06-21] MEDS ORDERED: Insulin Regular 1 UNITS/0.01 ML ML SC STA (19:06)
[2018-06-21] MEDS ORDERED: Magnesium Citrate Oral SOL (300 ml) PO ONE (19:55)
[2018-06-21 20:44] VITALS: BP 131/78; PULSE 88; RESP 16; O2SAT 97
== END 2018-06-21 21:00 | disposition home or self-care (01) ==
LOC: ED 15:13
DX: E11.65 Type 2 diabetes mellitus with hyperglycemia (principal); K59.00 Constipation, unspecified; I10 Essential (primary) hypertension; E78.5 Hyperlipidemia, unspecified; F17.210 Nicotine dependence, cigarettes, uncomplicated

== ENCOUNTER 2018-06-24 10:12 | Emergency (ER) | payer OTHER ==
[2018-06-24 10:20] VITALS: BMI 30.1
[2018-06-24 10:31] VITALS: RESP 18; TEMP 98.6
[2018-06-24] MEDS ORDERED: Magnesium Citrate Oral SOL (300 ml) PO ONE (10:36)
--- NOTE | 2018-06-24 10:46 | ED PDOC ---
Arrival/HPI - General Chief Complaint: GI Problem Time Seen by Provider: 06/24/18 10:16 Historian: Patient - History of Present Illness Narrative History of Present Illness (Text): 06/24/18 10:46 A 47 y/o M w/ pmhx of hypertension, hyperlipidemia, and diabetes, presents to the emergency department complaining of constipation for the past few days. Patient reports he was previously seen in the ER 3 days ago and reports the doct or gave him an enema that did not relieve his symptoms. Patient states the pain persisted following his visit to the ER and thinks he may have hemorrhoids. Patient notes he is having painful bowel movements and having difficulty passing any urine or stool. Patient denies any fever, chills, diarrhea, nausea, vomiting, back pain, headache, dizziness, or any other complaints. PMD: Tegan Griffith Time/Duration: Other (a few days) Symptom Onset: Gradual Symptom Course: Unchanged Activities at Onset: Light Context: Home Past Medical History - Provider Review Nursing Documentation Reviewed: Yes - Infectious Disease Hx of Infectious Diseases: None - Cardiac Hx Cardiac Disorders: Yes (enlarged heart) Hx Hypertension: Yes - Pulmonary Hx Respiratory Disorders: Yes Hx Asthma: Yes Hx Sleep Apnea: Yes Other/Comment: pt had sleep study done jun 2017 was + for sleep apnea. Pt stated" I lost 90 lbs since then and it went away." - Neurological Hx Neurological Disorder: No - HEENT Hx HEENT Disorder: No - Renal Hx Renal Disorder: No - Endocrine/Metabolic Hx Endocrine Disorders: Yes Hx Diabetes Mellitus Type 2: Yes Other/Comment: pre diabetes as per pt but [facility] [phone], has pt on glipizide er 5 mg daily filled not picked up and x igduo xl 5mg/500mg daily that was picked up 11/2017 - Hematological/Oncological Hx Blood Disorders: No - Integumentary Hx Dermatological Disorder: Yes Other/Comment: right thumb and hand cellulitis noted with decreased rom, edema redness tip of right thumb white and pale and small slit noted draining sm amt pink watery drainage, nail discoloration to lower nail, brown skin to top of both feet thick toenails - Musculoskeletal/Rheumatological Hx Musculoskeletal Disorders: Yes (decreased rom right hand/thumb) - Gastrointestinal Hx Gastrointestinal Disorders: No Hx Constipation: Yes - Genitourinary/Gynecological Hx Genitourinary Disorders: No - Psychiatric Hx Psychophysiologic Disorder: No Hx Substance Use: No - Anesthesia Hx Anesthesia: No Hx Anesthesia Reactions: No Hx Malignant Hyperthermia: No Family/Social History - Physician Review Nursing Documentation Reviewed: Yes Family/Social History: No Known Family HX Smoking Status: Light Smoker < 10 Cigarettes Daily Hx Alcohol Use: Yes (social) Frequency of alcohol use: Socially Hx Substance Use: No Allergies/Home Meds Allergies/Adverse Reactions: Allergies Penicillins Allergy (Verified 06/24/18 10:20) RASH shellfish Allergy (Uncoded 06/24/18 10:20) ANAPHYLAXIS Home Medications: Home Meds Medication Instructions Recorded Confirmed Albuterol Sulfate [Proair Hfa] 0.09 mg IH QID PRN 05/14/18 06/24/18 Montelukast [Singulair] 10 mg PO DAILY 05/14/18 06/24/18 Review of Systems - Physician Review All systems were reviewed & negative as marked: Yes - Review of Systems Constitutional: absent: Fevers, Night Sweats Gastrointestinal: Constipation. absent: Diarrhea Musculoskeletal: absent: Back Pain Neurological: absent: Headache, Dizziness Physical Exam Vital Signs Reviewed: Yes Vital Signs Temp Pulse Resp BP Pulse Ox 06/24/18 10:13 98.6 F 84 18 148/97 H 98 Temperature: Afebrile Blood Pressure: Normal Pulse: Regular Respiratory Rate: Normal Appearance: Positive for: Uncomfortable Pain Distress: Moderate - Systems Exam Abdomen: Present: Distention (soft and nontender) Rectal: Present: Hemorrhoids (+visible external hemorrhoids at 6 o'clock position, non-thrombosed, +palpable internal hemorrhoids), Other (+exquisite pain with insertion of finger, unable to pass finger completely into rectal vault, +hemoccult negative) Medical Decision Making ED Course and Treatment: 06/24/18 10:46 Impression: 47 y/o M w/ no pmhx presents to the emergency department complaining of constipation since the past few days. Differential Diagnosis included but are not limited to: -- External thrombosed hemorrhoids -- Extreme constipation Plan: -- Magnesium Citrate -- Fleet Enema -- Surgery Consult -- CBC -- CT of abdomen and pelvis -- Reassess and disposition Prior Visits: Notes and results from previous visits were reviewed. The patient was last seen on 06/21/18 for constipation and a right thumb issue. Patient was cleared once his symptoms improved and was discharged with magnesium citrate. The patient was also advised to follow up with his primary medical doctor and a hand specialist for his right thumb. Progress Notes: 06/24/18 11:14 Patient adamantly refuses enema and Magnesium citrate. Spoke to surgery resident who will come evaluate patient. 06/24/18 12:04 Surgery resident evaluated patient at the bedside, stating patient also has scrotal pain. She states patient should have a CT scan performed to rule out abscess. Otherwise, the patient may follow up with surgery with Sitz baths and increase in dietary fiber. - RAD Interpretation Narrative RAD Interpretations (Text): 06/24/18 14:20 Procedure: CT of Abdomen and pelvis without contrast Dictator: Juan Francisco Vail MD Impression: No definite evidence to suggest indicate perirectal abscess. Mural thickening of the rectum is not excluded and may indicate proctitis. Actuarial Trainee: Radiologist - Medication Orders Current Medication Orders: Discontinued Medications Magnesium Citrate (Citrate Of Mag) 300 ml PO ONCE ONE Stop: 06/24/18 10:37 Sodium Phosphate (Fleet Enema) 135 ml RC STAT STA Stop: 06/24/18 10:37 - Scribe Statement The provider has reviewed the documentation as recorded by the Fabibmaya [place] All medical record entries made by the Fabibe were at my direction and personally dictated by me. I have reviewed the chart and agree that the record accurately reflects my personal performance of the history, physical exam, medical decision making, and the department course for this patient. I have also personally directed, reviewed, and agree with the discharge instructions and disposition. Disposition/Present on Arrival - Present on Arrival Any Indicators Present on Arrival: Yes History of DVT/PE: No History of Uncontrolled Diabetes: Yes Urinary Catheter: No History of Decub. Ulcer: No History Surgical Site Infection Following: None - Disposition Have Diagnosis and Disposition been Completed?: Yes Diagnosis: External hemorrhoids, Proctitis Disposition: HOME/ ROUTINE Disposition Time: 13:08 Patient Plan: Discharge Patient Problems: Current Active Problems Problem Status Onset External hemorrhoids Acute Proctitis Acute Discharge Instructions (ExitCare): Proctitis, Hemorrhoids (DC) Print Language: JAPANESE Additional Instructions: All medical record entries made by the Scribe were at my direction and personally dictated by me. I have reviewed the chart and agree that the record accurately reflects my personal performance of the history, physical exam, medical decision making, and the department course for this patient. I have also personally directed, reviewed, and agree with the discharge instructions and disposition. Prescriptions: Ciprofloxacin [Cipro] 500 mg PO BID 7 Days #14 tab Hydrocortisone 2.5% (Rectal) [Anusol-HC] 30 applic CO BID #2 tube Lidocaine 2% Gel [Xylocaine 2% (Uro-Jet)] 30 ml TP Q4H #1 gel Referrals: Deanne Ivory MD [Staff Provider] - Follow up with primary Michell Cheng MD [Medical Doctor] - Follow up with primary [facility] [Outside] - Follow up with primary Forms: [employer] (Citizen Of [place])
[2018-06-24] MEDS ORDERED: Lidocaine 2% Jelly (Uro-Jet) TOP ONE ×2 (11:16→14:05)
[2018-06-24] MEDS: Mineral Oil Enema 135 ml RC ONE ×2 (11:51→12:45)
--- NOTE | 2018-06-24 12:00 | CP.PCM.CON ---
<OumarDewey - Last Filed: 06/24/18 12:21> History of Present Illness - History of Present Illness History of Present Illness: Dewey Oseguera, PGY1 Surgery Consult Note for Dr. Ivory cc: "constipation and rectal pain" Patient is a 47 y/o M w/ PMHx of asthma and DM II who presents to the ED c/o con stipation for the past few days with associated rectal pain. Patient claims he was seen in the ED previously 3 days ago for constipation, he was given an enema and his symptoms were not relieved. He had abdominal XRay on previous visit (06/21) that showed no obstruction or free air. Patient now returned to the ED for similar complaints. Surgery was consulted for possible hemorrhoids. Patient seen and examined in the ED. He told the machine sign writer that he has painful bowel movements and stays on the toilet longer than usual. His last bowel movement was this morning. He is passing gas. Denies nausea, vomiting, diarrhea, abdominal pain, blood in the stool, fever, chills. Patient was previously admitted in [facility] for an I&D of the R-thumb that was done with Dr. Page, which was complicated by osteomyelitis and he was discharged on antibiotics. A full 12 point ROS was conducted and unremarkable except as stated above. PMD: Tegan Griffith PMH: Asthma, DM2 PSH: Denies SocialHx: Tobacco: Light smoker 0.5 PPW, ETOH: 4-6 beers a week, ID: Denies recreational drug use. 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 ALL: PCN and shellfish - Anaphylaxis reaction MEDS: Pro-air inhaler as needed FamHx: non-contributory. No history of GI malignancy in family. Review of Systems - Review of Systems All systems: reviewed and no additional remarkable complaints except (as per HPI) Past Patient History - Infectious Disease Hx of Infectious Diseases: None - Past Social History Smoking Status: Light Smoker < 10 Cigarettes Daily - CARDIAC Hx Cardiac Disorders: Yes (enlarged heart) Hx Hypertension: Yes - PULMONARY Hx Respiratory Disorders: Yes Hx Asthma: Yes Hx Sleep Apnea: Yes Other/Comment: pt had sleep study done jun 2017 was + for sleep apnea. Pt stated" I lost 90 lbs since then and it went away." - NEUROLOGICAL Hx Neurological Disorder: No - HEENT Hx HEENT Problems: No - RENAL Hx Chronic Kidney Disease: No - ENDOCRINE/METABOLIC Hx Endocrine Disorders: Yes Hx Diabetes Mellitus Type 2: Yes Other/Comment: pre diabetes as per pt but [facility] [phone], has pt on glipizide er 5 mg daily filled not picked up and x igduo xl 5mg/500mg daily that was picked up 11/2017 - HEMATOLOGICAL/ONCOLOGICAL Hx Blood Disorders: No - INTEGUMENTARY Hx Dermatological Problems: Yes Other/Comment: right thumb and hand cellulitis noted with decreased rom, edema redness tip of right thumb white and pale and small slit noted draining sm amt pink watery drainage, nail discoloration to lower nail, brown skin to top of both feet thick toenails - MUSCULOSKELETAL/RHEUMATOLOGICAL Hx Musculoskeletal Disorders: Yes (decreased rom right hand/thumb) - GASTROINTESTINAL Hx Gastrointestinal Disorders: No Hx Constipation: Yes - GENITOURINARY/GYNECOLOGICAL Hx Genitourinary Disorders: No - PSYCHIATRIC Hx Psychophysiologic Disorder: No Hx Substance Use: No - SURGICAL HISTORY Hx Surgeries: No - ANESTHESIA Hx Anesthesia: No Hx Anesthesia Reactions: No Hx Malignant Hyperthermia: No Meds Allergies/Adverse Reactions: Allergies Allergy/AdvReac Type Severity Reaction Status Date / Time Penicillins Allergy RASH Verified 06/24/18 10:20 shellfish Allergy ANAPHYLAXIS Uncoded 06/24/18 10:20 Physical Exam - Head Exam Head Exam: ATRAUMATIC, NORMAL INSPECTION, NORMOCEPHALIC - Eye Exam Eye Exam: EOMI, Normal appearance - ENT Exam ENT Exam: Mucous Membranes Moist - Respiratory Exam Respiratory Exam: Clear to Auscultation Bilateral. absent: Rales, Rhonchi, Wheezes - Cardiovascular Exam Cardiovascular Exam: RRR, +S1, +S2 - GI/Abdominal Exam GI & Abdominal Exam: Normal Bowel Sounds, Soft. absent: Distended, Firm, Guarding, Rebound, Rigid, Tenderness - Rectal Exam Additional comments: No external or internal hemorrhoids visualized or palpated. No rectal bleeding, fissures, or rectal prolapse visualized. Severe tenderness with finger insertion around the perineal area. No blood noted on exam. - Extremities Exam Extremities exam: Positive for: normal inspection - Neurological Exam Neurological exam: Alert, CN II-XII Intact, Oriented x3 - Skin Skin Exam: Dry, Intact, Normal Color, Warm Results - Vital Signs Recent Vital Signs: Last Vital Signs Temp 98.6 F 06/24/18 10:13 Pulse 84 06/24/18 10:13 Resp 18 06/24/18 10:13 BP 148/97 H 06/24/18 10:13 Pulse Ox 98 06/24/18 10:13 Assessment & Plan - Assessment and Plan (Free Text) Assessment: Patient is a 47 y/o M here for rectal pain Plan: - c/w conservative management for now - will obtain CT Abd/Pelvis to r/o abscess given exquisite tenderness in pernieal area - Please see further recommendations as per Dr. Ivory <Carie Sorensen - Last Filed: 06/24/18 14:41> Review of Systems - Constitutional Constitutional: absent: Anorexia, Chills, Weight Loss, Weakness - Gastrointestinal Gastrointestinal: Loose Stools. absent: Abdominal Pain, Bloating, Diarrhea Physical Exam - Rectal Exam Rectal Exam: absent: Black Stool, Bloody Stool, Hemorrhoids, Fecal Impaction Results - Vital Signs Recent Vital Signs: Last Vital Signs Temp 98.6 F 06/24/18 10:13 Pulse 84 06/24/18 10:13 Resp 18 06/24/18 10:13 BP 148/97 H 06/24/18 10:13 Pulse Ox 98 06/24/18 10:13 Assessment & Plan - Assessment and Plan (Free Text) Assessment: CT: No perirectal absecess, possible rectal mural thickening can not rule out proctitis Plan: -Out patient GI follow up -Anusol for swelling -Lidocaine gel for pain -sitz bath -NSAIDs for pain control DW Dr. Ivory
--- NOTE | 2018-06-24 12:59 | CT ---
Date of service: 06/24/2018 PROCEDURE: CT Abdomen and Pelvis without intravenous contrast HISTORY: h/o hemrrhoids w/ rectal pain r/o abscess COMPARISON: None. TECHNIQUE: Helical CT of the abdomen and pelvis was performed without oral or intravenous contrast as per referring physician request. Coronal and sagittal reformats were generated Contrast dose: None Radiation dose: Total exam DLP = 786.31 mGy-cm. This CT exam was performed using one or more of the following dose reduction techniques: Automated exposure control, adjustment of the mA and/or kV according to patient size, and/or use of iterative reconstruction technique. FINDINGS: LOWER THORAX: Small hiatal hernia encountered. LIVER: There is a granuloma or other calcification noted in the right lobe periphery, inferiorly. GALLBLADDER AND BILE DUCTS: Unremarkable. PANCREAS: Unremarkable. No gross lesion or ductal dilatation. SPLEEN: Unremarkable. ADRENALS: Unremarkable. No mass. KIDNEYS AND URETERS: Unremarkable. No hydronephrosis. No solid mass. VASCULATURE: Unremarkable. No aortic aneurysm. No aortic atherosclerotic calcification or mural plaque present. BOWEL: Moderate fecal loading is seen throughout the colon borderline for constipation. No bowel obstruction. Small bowel does not appear distended and is unremarkable. Evaluation of the gastrointestinal tract is limited due to the lack of oral contrast administration. No definite CT evidence of perirectal abscess. Mural thickening of the rectum is not excluded and may indicate proctitis. APPENDIX: Unremarkable. Normal appendix. PERITONEUM: Unremarkable. No free fluid. No free air. LYMPH NODES: Unremarkable. No enlarged lymph nodes. BLADDER: Unremarkable. REPRODUCTIVE: Unremarkable. BONES: No acute fracture. OTHER FINDINGS: None. IMPRESSION: No definite evidence to suggest indicate perirectal abscess. Mural thickening of the rectum is not excluded and may indicate proctitis.
[2018-06-24 14:56] VITALS: BP 143/85; PULSE 92; O2SAT 100
== END 2018-06-24 15:11 | disposition home or self-care (01) ==
LOC: ED 10:12
DX: K64.4 Residual hemorrhoidal skin tags (principal); K62.89 Other specified diseases of anus and rectum; E11.9 Type 2 diabetes mellitus without complications; E78.5 Hyperlipidemia, unspecified; I10 Essential (primary) hypertension; F17.210 Nicotine dependence, cigarettes, uncomplicated